=== PATIENT | female | born 1955 | race Caucasian/White ===

== ENCOUNTER 2024-01-27 03:13 | Emergency (ER) | payer MEDICARE, MEDICAID ==
[~2024-01-27] VITALS: Ht 160 cm; Wt 77.5 kg
[2024-01-27] MEDS ORDERED: LEVOTHYROXINE25 MCG (03:20)
[2024-01-27] MEDS ORDERED: AMLODIPINE BESY10 MG PO (03:20)
[2024-01-27] MEDS ORDERED: BUSPIRONE HCL30 MG PO (03:20)
[2024-01-27] MEDS ORDERED: HYDROXYZINE HCL50 MG PO (03:20)
[2024-01-27] MEDS ORDERED: PRAVASTATIN SOD40 MG PO (03:20)
[2024-01-27] MEDS ORDERED: ATENOLOL50 MG (03:20)
[2024-01-27] MEDS ORDERED: FAMOTIDINE40 MG PO (03:21)
[2024-01-27] MEDS ORDERED: OMEPRAZOLE20 MG PO (03:21)
[2024-01-27] MEDS ORDERED: PRAMIPEXOLE D0.25 MG PO (03:21)
[2024-01-27 03:25] LABS: BASOPHILS 1.4 % (0-2); EOSINOPHILS 2.4 % (0-6); HEMATOCRIT 35.2 % (35.0-50.0); HEMOGLOBIN 11.5 g/dL (12.0-18.0); LYMPHOCYTES 32.7 % (24-44); MCH 27.1 (27-36); MCHC 32.8 g/dl (30-36); MCV 82.6 fl (81-99); NEUTROPHILS 53.5 % (39-80); PLATELET COUNT 292 K/uL (140-440); RBC 4.27 M/ul (4.3-5.7); RDW 14.3 (10.5-15.0)
[2024-01-27] MEDS ORDERED: ondansetron HCL 4 MG/2 ML VIAL IV ONE (03:30)
[2024-01-27 03:44] LABS: ALBUMIN 3.4 g/dL (3.4-5.0); ALCOHOL, MEDICAL <3 ng/dL (<3); ALKALINE PHOSPHATASE 75 U/L (46-116); ALT (SGPT) 19 U/L (14-59); ANION GAP 15.9 (7-21); AST (SGOT) 17 U/L (15-37); BILIRUBIN, TOTAL 0.4 ng/dL (0.2-1.0); BUN/CREATININE RATIO 14.55 (6.0-28.6); CARBON DIOXIDE 27 mmol/L (21-32); CHLORIDE 102 mmol/L (98-107); CREATININE, SERUM 1.58 mg/dL (0.55-1.02); GLOMERULAR FILTRATION RATE,EST 35 mL/min (>60); POTASSIUM 3.9 mmol/L (3.5-5.1); PROTEIN, TOTAL 6.8 g/dL (6.4-8.2); UREA NITROGEN 23 mg/dL (7-18)
[2024-01-27 03:49] LABS: CALCIUM 8.7 mg/dL (8.5-10.1)
[2024-01-27] MEDS ORDERED: LACTATED RINGER'S 1,000 ML IV ONE (04:30)
[2024-01-27 04:42] LABS: BILIRUBIN, URINE NEGATIVE (negative); BLOOD/HGB, URINE NEGATIVE (Negative); KETONE, URINE NEGATIVE (Negative); LEUK ESTERASE, URINE NEGATIVE (negative); NITRITE, URINE NEGATIVE (negative)
[2024-01-27 04:55] LABS: AMPHETAMINES, URINE NEGATIVE (NEGATIVE); BARBITURATES, URINE NEGATIVE (NEGATIVE); BENZODIAZEPINE, URINE NEGATIVE (NEGATIVE); BUPRENORPHINE, URINE NEGATIVE (NEGATIVE); CANNABINOID, URINE NEGATIVE (NEGATIVE); COCAINE, URINE NEGATIVE (NEGATIVE); ECSTASY, URINE NEGATIVE (NEGATIVE); FENTANYL, URINE NEGATIVE (NEGATIVE); METHADONE, URINE NEGATIVE (NEGATIVE); OPIATES, URINE NEGATIVE (NEGATIVE); OXYCODONE, URINE NEGATIVE (NEGATIVE); PHENCYCLIDINE, URINE NEGATIVE (NEGATIVE)
[2024-01-27 05:24] VITALS: BP 125/46
--- NOTE | 2024-01-27 21:41 | EKG ---
[facility] [address] [facility] [place] [address] Signed Normal sinus rhythm Left bundle branch block Abnormal ECG No previous ECGs available Confirmed by Wyatt Aguilera MD () on 01/27/2024 9:41:43 PM Electronically Signed By: WYATT AGUILERA MD 01/27/242140 PATIENT NAME: OLIVIER GALVIN Electrocardiogram DATE OF : 53 PHYSICIAN: WYATT AGUILERA MD REPORT #: [id number] REPORT IS CONFIDENTIAL AND NOT TO BE RELEASED WITHOUT AUTHORIZATION
== END 2024-01-27 05:24 | disposition home or self-care (01) ==
LOC: ED 03:13
PROVIDERS: Internal Medicine
DX: F41.9 Anxiety disorder, unspecified (principal); I10 Essential (primary) hypertension; Z79.51 Long term (current) use of inhaled steroids; Z79.899 Other long term (current) drug therapy
CPT/HCPCS: 36415; 71045; 80053; 80307; 81003; 84484; 85025; 93005; 93010; 96374; 99285-25; G0480; J2405

== ENCOUNTER 2024-02-12 21:34 | Emergency (ER) | payer MEDICARE, MEDICAID ==
[~2024-02-12] VITALS: Ht 160 cm; Wt 80.1 kg
[~2024-02-12 21:34] MED LIST: AMLODIPINE BESY10 MG PO; ATENOLOL50 MG; BUSPIRONE HCL30 MG PO; FAMOTIDINE40 MG PO; HYDROXYZINE HCL50 MG PO; LEVOTHYROXINE25 MCG; OMEPRAZOLE20 MG PO; PRAMIPEXOLE D0.25 MG PO; PRAVASTATIN SOD40 MG PO
--- OUTSIDE RECORDS SUMMARY | 2024-02-12 21:39 | XMS ---
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 - 2 Visits in 30 Days CARE PROVIDERS TRAV RUFFIN [facility] Current PHONE: [phone] Vilma has no Care Guidelines for this patient. Shahram VISIT COUNT (12 MO.) 2 [facility] TOTAL 2 NOTE: Visits indicate total known visits. 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
[2024-02-12 21:56] LABS: BILIRUBIN, URINE NEGATIVE (negative); BLOOD/HGB, URINE NEGATIVE (Negative); KETONE, URINE NEGATIVE (Negative); LEUK ESTERASE, URINE NEGATIVE (negative); NITRITE, URINE NEGATIVE (negative); PH, URINE 5.5 (5-7)
[2024-02-12] MEDS ORDERED: FLUVOXAMINE MAL50 MG PO (22:06)
[2024-02-12] MEDS ORDERED: LEVOTHYROXINE25 MCG PO (22:06)
[2024-02-12 22:11] LABS: AMPHETAMINES, URINE NEGATIVE (NEGATIVE); BARBITURATES, URINE NEGATIVE (NEGATIVE); BENZODIAZEPINE, URINE NEGATIVE (NEGATIVE); BUPRENORPHINE, URINE NEGATIVE (NEGATIVE); CANNABINOID, URINE POSITIVE (NEGATIVE); COCAINE, URINE NEGATIVE (NEGATIVE); ECSTASY, URINE NEGATIVE (NEGATIVE); FENTANYL, URINE NEGATIVE (NEGATIVE); METHADONE, URINE NEGATIVE (NEGATIVE); OPIATES, URINE NEGATIVE (NEGATIVE); OXYCODONE, URINE NEGATIVE (NEGATIVE); PHENCYCLIDINE, URINE NEGATIVE (NEGATIVE)
[2024-02-12 22:20] LABS: BASOPHILS 0.6 % (0-2); EOSINOPHILS 1.8 % (0-6); HEMATOCRIT 36.1 % (35.0-50.0); HEMOGLOBIN 11.7 g/dL (12.0-18.0); LYMPHOCYTES 34.7 % (24-44); MCHC 32.4 g/dl (30-36); MCV 83.4 fl (81-99); MONOCYTES 10.6 % (0-12); NEUTROPHILS 52.3 % (39-80); PLATELET COUNT 286 K/uL (140-440); RBC 4.32 M/ul (4.3-5.7); RDW 14.1 (10.5-15.0)
[2024-02-12 22:42] LABS: ACETAMINOPHEN 0 ug/mL (10-30); ALBUMIN 3.2 g/dL (3.4-5.0); ALBUMIN/GLOBULIN RATIO 0.94 (1.1-2.4); ALCOHOL, MEDICAL <3 ng/dL (<3); ALKALINE PHOSPHATASE 76 U/L (46-116); ALT (SGPT) 16 U/L (14-59); ANION GAP 8.6 (7-21); AST (SGOT) 9 U/L (15-37); BILIRUBIN, TOTAL 0.5 ng/dL (0.2-1.0); BUN/CREATININE RATIO 15.03 (6.0-28.6); CALCIUM 8.8 mg/dL (8.5-10.1); CARBON DIOXIDE 25 mmol/L (21-32); CHLORIDE 101 mmol/L (98-107); CREATININE, SERUM 1.53 mg/dL (0.55-1.02); GLOMERULAR FILTRATION RATE,EST 37 mL/min (>60); POTASSIUM 3.6 mmol/L (3.5-5.1); PROTEIN, TOTAL 6.6 g/dL (6.4-8.2); SALICYLATE 1.7 mg/dL (2.8-20.0); UREA NITROGEN 23 mg/dL (7-18)
[2024-02-12 23:54] VITALS: BP 116/51
[2024-02-19] MEDS ORDERED: SEROQUEL25 MG PO (00:33)
== END 2024-02-12 23:55 | disposition home or self-care (01) ==
LOC: ED 21:34
PROVIDERS: Family Medicine
DX: F22 Delusional disorders (principal); I10 Essential (primary) hypertension; Z79.899 Other long term (current) drug therapy; Z79.890 Hormone replacement therapy
CPT/HCPCS: 36415; 80053; 80307; 81003; 84443; 85025; 99285; G0480

== ENCOUNTER 2024-03-25 19:59 | Emergency (ER) | payer MEDICARE, MEDICAID ==
[~2024-03-25] VITALS: Ht 160 cm; Wt 78.0 kg
[~2024-03-25 19:59] MED LIST changes: +FLUVOXAMINE MAL50 MG PO; +LEVOTHYROXINE25 MCG PO; +SEROQUEL25 MG PO
[2024-03-25] MEDS ORDERED: ESTRADIOL42.5 GM VAGINAL (20:08)
[2024-03-25] MEDS ORDERED: RISPERIDONE0.25 MG PO (20:09)
[2024-03-25] MEDS ORDERED: ONDANSETRON 4 MG TAB ODT SL ONE (20:15)
[2024-03-25 20:35] LABS: BASOPHILS 1.3 % (0-2); EOSINOPHILS 1.4 % (0-6); HEMATOCRIT 34.9 % (35.0-50.0); HEMOGLOBIN 11.8 g/dL (12.0-18.0); LYMPHOCYTES 32.8 % (24-44); MCH 27.7 (27-36); MCHC 33.9 g/dl (30-36); MCV 81.7 fl (81-99); MONOCYTES 9.9 % (0-12); NEUTROPHILS 54.6 % (39-80); PLATELET COUNT 280 K/uL (140-440); RBC 4.28 M/ul (4.3-5.7); RDW 14.3 (10.5-15.0)
[2024-03-25 21:01] LABS: ACETAMINOPHEN 0 ug/mL (10-30); ALBUMIN 3.3 g/dL (3.4-5.0); ALBUMIN/GLOBULIN RATIO 0.89 (1.1-2.4); ALCOHOL, MEDICAL <3 ng/dL (<3); ALKALINE PHOSPHATASE 76 U/L (46-116); ALT (SGPT) 15 U/L (14-59); ANION GAP 11.4 (7-21); AST (SGOT) 12 U/L (15-37); BILIRUBIN, TOTAL 0.3 ng/dL (0.2-1.0); BUN/CREATININE RATIO 13.85 (6.0-28.6); CALCIUM 9.4 mg/dL (8.5-10.1); CARBON DIOXIDE 28 mmol/L (21-32); CHLORIDE 103 mmol/L (98-107); CREATININE, SERUM 1.66 mg/dL (0.55-1.02); GLOMERULAR FILTRATION RATE,EST 33 mL/min (>60); POTASSIUM 3.4 mmol/L (3.5-5.1); SALICYLATE 0.7 mg/dL (2.8-20.0); TSH, 3RD GENERATION 2.077 uIU/mL (0.358-3.740); UREA NITROGEN 23 mg/dL (7-18)
[2024-03-25 21:19] LABS: BILIRUBIN, URINE NEGATIVE (negative); BLOOD/HGB, URINE NEGATIVE (Negative); KETONE, URINE NEGATIVE (Negative); LEUK ESTERASE, URINE NEGATIVE (negative); NITRITE, URINE NEGATIVE (negative); PH, URINE 5.5 (5-7)
[2024-03-25 21:34] LABS: AMPHETAMINES, URINE NEGATIVE (NEGATIVE); BARBITURATES, URINE NEGATIVE (NEGATIVE); BENZODIAZEPINE, URINE NEGATIVE (NEGATIVE); BUPRENORPHINE, URINE NEGATIVE (NEGATIVE); CANNABINOID, URINE POSITIVE (NEGATIVE); COCAINE, URINE NEGATIVE (NEGATIVE); ECSTASY, URINE NEGATIVE (NEGATIVE); FENTANYL, URINE NEGATIVE (NEGATIVE); METHADONE, URINE NEGATIVE (NEGATIVE); OPIATES, URINE NEGATIVE (NEGATIVE); OXYCODONE, URINE NEGATIVE (NEGATIVE); PHENCYCLIDINE, URINE NEGATIVE (NEGATIVE)
[2024-03-25 21:40] LABS: ERYTHROCYTE SEDIMENTATION RATE 23
[2024-03-25] MEDS ORDERED: LASIX40 MG PO (23:36)
[2024-03-25] MEDS ORDERED: K-TAB ER20 MEQ PO (23:36)
[2024-03-25] MEDS ORDERED: POTASSIUM CHLORIDE 10 MEQ TABCR PO ONE (23:45)
[2024-03-26 01:42] VITALS: BP 118/55
--- NOTE | 2024-03-26 20:51 | EKG ---
[facility] [address] [facility] [place] [address] Signed Normal sinus rhythm Left axis deviation Left bundle branch block Abnormal ECG When compared with ECG of 27-JAN-2024 03:32, No significant change was found Confirmed by Miguel Ángel Aponte MD ([id number]) on 03/26/2024 8:51:07 PM Electronically Signed By: MIGUEL ÁNGEL APONTE DO 03/26/242050 PATIENT NAME: OLIVIER GALVIN Electrocardiogram DATE OF : 53 PHYSICIAN: MIGUEL ÁNGEL APONTE DO REPORT #: [id number] REPORT IS CONFIDENTIAL AND NOT TO BE RELEASED WITHOUT AUTHORIZATION
== END 2024-03-26 01:42 | disposition home or self-care (01) ==
LOC: ED 19:59
PROVIDERS: Internal Medicine
DX: R60.0 Localized edema (principal); F22 Delusional disorders; I10 Essential (primary) hypertension; Z79.899 Other long term (current) drug therapy
CPT/HCPCS: 36415; 80053; 80307; 81003; 83735; 83880; 84443; 84484; 85025; 85379; 85651; 86140; 93005; 93010; 93970; 99284-25; A9270; G0480

== ENCOUNTER 2024-06-17 17:11 | Emergency (ER) | payer MEDICARE, MEDICAID ==
[~2024-06-17] VITALS: Ht 160 cm; Wt 88.0 kg
[~2024-06-17 17:11] MED LIST changes: +ESTRADIOL42.5 GM VAGINAL; +K-TAB ER20 MEQ PO; +LASIX40 MG PO; +RISPERIDONE0.25 MG PO
[2024-06-17 18:22] LABS: BILIRUBIN, URINE NEGATIVE (negative); BLOOD/HGB, URINE NEGATIVE (Negative); KETONE, URINE TRACE (Negative); LEUK ESTERASE, URINE NEGATIVE (negative); NITRITE, URINE NEGATIVE (negative); PH, URINE 5.5 (5-7)
[2024-06-17 18:36] LABS: BASOPHILS 0.4 % (0-2); EOSINOPHILS 0.6 % (0-6); HEMATOCRIT 34.4 % (35.0-50.0); HEMOGLOBIN 11.5 g/dL (12.0-18.0); LYMPHOCYTES 14.8 % (24-44); MCH 26.9 (27-36); MCHC 33.3 g/dl (30-36); MCV 80.8 fl (81-99); MONOCYTES 7.8 % (0-12); NEUTROPHILS 76.4 % (39-80); PLATELET COUNT 244 K/uL (140-440); RBC 4.25 M/ul (4.3-5.7); RDW 15.1 (10.5-15.0)
[2024-06-17 18:37] LABS: AMPHETAMINES, URINE NEGATIVE (NEGATIVE); BARBITURATES, URINE NEGATIVE (NEGATIVE); BENZODIAZEPINE, URINE NEGATIVE (NEGATIVE); BUPRENORPHINE, URINE NEGATIVE (NEGATIVE); CANNABINOID, URINE NEGATIVE (NEGATIVE); COCAINE, URINE NEGATIVE (NEGATIVE); ECSTASY, URINE NEGATIVE (NEGATIVE); FENTANYL, URINE NEGATIVE (NEGATIVE); METHADONE, URINE NEGATIVE (NEGATIVE); OPIATES, URINE NEGATIVE (NEGATIVE); OXYCODONE, URINE NEGATIVE (NEGATIVE); PHENCYCLIDINE, URINE NEGATIVE (NEGATIVE)
[2024-06-17 18:53] LABS: ACETAMINOPHEN 0 ug/mL (10-30); ALBUMIN 3.3 g/dL (3.4-5.0); ALBUMIN/GLOBULIN RATIO 0.92 (1.1-2.4); ALCOHOL, MEDICAL <3 ng/dL (<3); ALKALINE PHOSPHATASE 65 U/L (46-116); ALT (SGPT) 20 U/L (14-59); ANION GAP 13.2 (7-21); AST (SGOT) 18 U/L (15-37); BILIRUBIN, TOTAL 0.3 ng/dL (0.2-1.0); BUN/CREATININE RATIO 16.04 (6.0-28.6); CALCIUM 8.8 mg/dL (8.5-10.1); CARBON DIOXIDE 27 mmol/L (21-32); CHLORIDE 103 mmol/L (98-107); CREATININE, SERUM 1.62 mg/dL (0.55-1.02); GLOMERULAR FILTRATION RATE,EST 34 mL/min (>60); POTASSIUM 4.2 mmol/L (3.5-5.1); PROTEIN, TOTAL 6.9 g/dL (6.4-8.2); SALICYLATE 0.6 mg/dL (2.8-20.0); TSH, 3RD GENERATION 1.586 uIU/mL (0.358-3.740); UREA NITROGEN 26 mg/dL (7-18)
[2024-06-17 20:22] VITALS: BP 109/57
== END 2024-06-17 20:22 | disposition home or self-care (01) ==
LOC: ED 17:11
PROVIDERS: Emergency Medicine
DX: F32.A Depression, unspecified (principal); I10 Essential (primary) hypertension; E03.9 Hypothyroidism, unspecified; K21.9 Gastro-esophageal reflux disease without esophagitis; Z79.899 Other long term (current) drug therapy
CPT/HCPCS: 36415; 80053; 80307; 81003; 84443; 85025; 99284; G0480

== ENCOUNTER 2024-07-15 20:40 | Emergency (ER) | payer MEDICARE, MEDICAID ==
[~2024-07-15] VITALS: Ht 160 cm; Wt 83.9 kg
[2024-07-15] MEDS ORDERED: SOD PHOSPHATE/SOD BIPHOSPHATE 132 ML BTL PR ONE (21:30)
[2024-07-15] MEDS ORDERED: MAGNESIUM CITRATE 300 ML BTL PO ONE (22:15)
[2024-07-15 22:32] VITALS: BP 105/52
== END 2024-07-15 22:36 | disposition home or self-care (01) ==
LOC: ED 20:40
DX: K59.00 Constipation, unspecified (principal); E03.9 Hypothyroidism, unspecified; I10 Essential (primary) hypertension; K21.9 Gastro-esophageal reflux disease without esophagitis; Z79.899 Other long term (current) drug therapy
CPT/HCPCS: 74018; 99283-25

== ENCOUNTER 2024-09-19 12:36 | Emergency (ER) | payer MEDICARE, MEDICAID ==
[~2024-09-19] VITALS: Ht 160 cm; Wt 82.9 kg
[~2024-09-19 12:36] MED LIST changes: +COLACE100 MG PO
[2024-09-19] MEDS ORDERED: ondansetron HCL 4 MG/2 ML VIAL IV ONE (12:45)
[2024-09-19] MEDS ORDERED: SODIUM CHLORIDE 0.9% 500 ML IV ONE (12:45)
[2024-09-19 13:06] LABS: BILIRUBIN, URINE POSITIVE (negative); BLOOD/HGB, URINE NEGATIVE (Negative); KETONE, URINE TRACE (Negative); LEUK ESTERASE, URINE TRACE (negative); NITRITE, URINE POSITIVE (negative)
[2024-09-19 13:06] LABS: BASOPHILS 0.9 % (0-2); EOSINOPHILS 0.9 % (0-6); HEMATOCRIT 35.5 % (35.0-50.0); HEMOGLOBIN 11.9 g/dL (12.0-18.0); LYMPHOCYTES 23.7 % (24-44); MCH 26.4 (27-36); MCHC 33.6 g/dl (30-36); MCV 78.7 fl (81-99); MONOCYTES 9.7 % (0-12); NEUTROPHILS 64.8 % (39-80); PLATELET COUNT 273 K/uL (140-440); RBC 4.51 M/ul (4.3-5.7)
[2024-09-19 13:14] LABS: BACTERIA, URINE 2+ /hpf (negative); RED BLOOD CELLS, URINE 0-1 /hpf (0-5)
[2024-09-19 13:15] LABS: EPITHELIAL CELLS, URINE SQUAMOUS 3+ /lpf (0-1+); REFLEX CULTURE, URINE No (No)
[2024-09-19 13:32] LABS: ALBUMIN 3.2 g/dL (3.4-5.0); ALBUMIN/GLOBULIN RATIO 0.97 (1.1-2.4); ALCOHOL, MEDICAL <3 ng/dL (<3); ALKALINE PHOSPHATASE 71 U/L (46-116); ALT (SGPT) 23 U/L (14-59); ANION GAP 11.4 (7-21); AST (SGOT) 17 U/L (15-37); BILIRUBIN, TOTAL 0.6 mg/dL (0.2-1.0); BUN/CREATININE RATIO 9.42 (6.0-28.6); CALCIUM 8.5 mg/dL (8.5-10.1); CARBON DIOXIDE 31 mmol/L (21-32); CHLORIDE 102 mmol/L (98-107); CREATININE, SERUM 1.38 mg/dL (0.55-1.02); GLOMERULAR FILTRATION RATE,EST 41 mL/min (>60); POTASSIUM 3.4 mmol/L (3.5-5.1); PROTEIN, TOTAL 6.5 g/dL (6.4-8.2); UREA NITROGEN 13 mg/dL (7-18)
[2024-09-19 13:34] LABS: TSH, 3RD GENERATION 0.6 uIU/mL (0.358-3.740)
[2024-09-19] MEDS ORDERED: CEFTRIAXONE SODIUM 2 GM in SODIUM CHLORIDE 0.9% 100 ML IV ONE (14:15)
[2024-09-19 14:28] LABS: BILIRUBIN, URINE NEGATIVE (negative); BLOOD/HGB, URINE NEGATIVE (Negative); KETONE, URINE NEGATIVE (Negative); LEUK ESTERASE, URINE NEGATIVE (negative); NITRITE, URINE NEGATIVE (negative); PH, URINE 6.5 (5-7)
[2024-09-19] MEDS ORDERED: ONDANSETRON ODT4 MG PO (15:41)
[2024-09-19 15:58] VITALS: BP 168/50
--- NOTE | 2024-09-19 22:29 | EKG ---
[facility] [address] [facility] [place] [address] Signed Normal sinus rhythm Left axis deviation Left bundle branch block Abnormal ECG When compared with ECG of 25-MAR-2024 20:23, No significant change was found Confirmed by Wyatt Aguilera MD () on 09/19/2024 10:29:33 PM Electronically Signed By: WYATT AGUILERA MD 09/19/24 2229 PATIENT NAME: GALVINOLIVIER JOSH Electrocardiogram DATE OF : 53 PHYSICIAN: WYATT AGUILERA MD REPORT #: [id number] REPORT IS CONFIDENTIAL AND NOT TO BE RELEASED WITHOUT AUTHORIZATION
== END 2024-09-19 15:58 | disposition home or self-care (01) ==
LOC: ED 12:36
PROVIDERS: Emergency Medicine
DX: R11.0 Nausea (principal); R35.0 Frequency of micturition; R30.0 Dysuria; E11.9 Type 2 diabetes mellitus without complications; I10 Essential (primary) hypertension; K21.9 Gastro-esophageal reflux disease without esophagitis; Z79.899 Other long term (current) drug therapy
CPT/HCPCS: 36415; 74177; 80053; 81001; 81003; 84439; 84443; 84484; 85025; 93005; 93010; 96375; 99285-25; G0480; J0696; J2405; J7040; Q9967

== ENCOUNTER 2024-12-12 14:33 | Emergency (ER) | payer MEDICARE, OTHER ==
[~2024-12-12] VITALS: Ht 160 cm; Wt 79.5 kg
[~2024-12-12 14:33] MED LIST changes: +ONDANSETRON ODT4 MG PO
[2024-12-12] MEDS ORDERED: HYDROXYZINE HCL25 MG PO (14:55)
[2024-12-12] MEDS ORDERED: QUETIAPINE FUMA25 MG PO (14:55)
[2024-12-12] MEDS ORDERED: METOCLOPRAMIDE H5 MG PO (14:56)
[2024-12-12] MEDS ORDERED: SODIUM CHLORIDE 0.9% 500 ML IV ONE (15:15)
[2024-12-12] MEDS ORDERED: METOCLOPRAMIDE HCL 10 MG/2 ML SDV IV ONE (15:30)
[2024-12-12 15:37] LABS: BASOPHILS 0.2 % (0.1-1.2); EOSINOPHILS 0.9 % (0.7-5.8); LYMPHOCYTES 27.1 % (19.3-51.7); MCH 26.1 PG (25.6-32.2); MCHC 32.3 g/dL (32.2-35.5); MCV 80.7 fL (79.4-94.8); MONOCYTES 9.7 % (4.7-12.5); NEUTROPHILS 61.7 % (34.0-71.1); RBC 4.83 M/uL (3.93-5.22)
[2024-12-12 15:40] LABS: BLOOD/HGB, URINE NEGATIVE (Negative); KETONE, URINE TRACE (Negative); LEUK ESTERASE, URINE TRACE (negative); NITRITE, URINE NEGATIVE (negative)
[2024-12-12 15:48] LABS: BACTERIA, URINE RARE /hpf (negative); CASTS, URINE NONE SEEN \\lpf; CRYSTALS, URINE NONE SEEN (0-1+); EPITHELIAL CELLS, URINE SQUAMOUS 3+ /lpf (0-1+); REFLEX CULTURE, URINE No (No)
[2024-12-12 15:55] LABS: ALT (SGPT) 21.0 U/L (14-59); AST (SGOT) 15.0 U/L (15-37); GLOMERULAR FILTRATION RATE,EST 33.0 mL/min (>60); PROTEIN, TOTAL 6.9 g/dL (6.4-8.2); UREA NITROGEN 18.0 mg/dL (7-18)
[2024-12-12 17:30] VITALS: BP 125/54
== END 2024-12-12 18:20 | disposition home or self-care (01) ==
LOC: ED 14:33
PROVIDERS: Emergency Medicine
DX: R11.0 Nausea (principal); R10.32 Left lower quadrant pain; M19.90 Unspecified osteoarthritis, unspecified site; K21.9 Gastro-esophageal reflux disease without esophagitis; I10 Essential (primary) hypertension
CPT/HCPCS: 36415; 80053; 81001; 83735; 85025; 96374; 96375; 99284-25; J1200; J2405; J2765; J7040

== ENCOUNTER 2024-12-17 11:59 | Emergency (ER) | payer MEDICARE, OTHER ==
[~2024-12-17] VITALS: Ht 160 cm; Wt 79.0 kg
[~2024-12-17 11:59] MED LIST changes: +HYDROXYZINE HCL25 MG PO; +METOCLOPRAMIDE H5 MG PO; +QUETIAPINE FUMA25 MG PO
--- OUTSIDE RECORDS SUMMARY | 2024-12-17 12:05 | XMS ---
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 Shahram VISIT COUNT (12 MO.) [address] [place] [address] TOTAL 9 NOTE: Visits indicate total known visits. ED/UCC VISIT TRACKING (12 MO.) 12/17/2024 11:59 [facility] [place] TYPE: Emergency COMPLAINT: - WEAKNESS 12/12/2024 14:[address] [facility] [place] TYPE: Emergency COMPLAINT: - NAUSEA DIAGNOSES: - Essential (primary) hypertension - Gastro-esophageal reflux disease without esophagitis - Left lower quadrant pain - Nausea - Unspecified osteoarthritis, unspecified site 09/19/2024 12:[address] [facility] [place] TYPE: Emergency COMPLAINT: - WEAKNESS DIAGNOSES: - Dysuria - Essential (primary) hypertension - Frequency of micturition - Gastro-esophageal reflux disease without esophagitis - Nausea - Other intermediate school teacher (current) drug therapy - Type 2 diabetes mellitus without complications 07/15/2024 20:41 [facility] [place] TYPE: Emergency COMPLAINT: - ABD PAIN DIAGNOSES: - Constipation, unspecified - Essential (primary) hypertension - Gastro-esophageal reflux disease without esophagitis - Hypothyroidism, unspecified - Other intermediate school teacher (current) drug therapy 06/17/2024 17:12 [facility] [place] TYPE: Emergency COMPLAINT: - MEDICAL CLEARANCE DIAGNOSES: - Depression, unspecified - Essential (primary) hypertension - Gastro-esophageal reflux disease without esophagitis - Hypothyroidism, unspecified - Other intermediate school teacher (current) drug therapy - Suicidal ideations 03/25/2024 19:59 [facility] [place] TYPE: Emergency COMPLAINT: - WEAKNESS DIAGNOSES: - Delusional disorders - Essential (primary) hypertension - Localized edema - Other nursing home (current) drug therapy 02/18/2024 22:17 [facility] [place] TYPE: Emergency COMPLAINT: - MEDICAL CLEARANCE DIAGNOSES: - Delusional disorders - Essential (primary) hypertension - Hormone replacement therapy - Insomnia, unspecified - Other nursing home (current) drug therapy - Unspecified psychosis not due to a substance or known physiological condition 02/12/2024 21:36 [facility] [place] TYPE: Emergency COMPLAINT: - MEDICAL CLEARANCE DIAGNOSES: - Delusional disorders - Encounter for general psychiatric examination, requested by authority - Essential (primary) hypertension - Hormone replacement therapy - Other nursing home (current) drug therapy 01/27/2024 03:13 [facility] [place] TYPE: Emergency COMPLAINT: - VOMITING DIAGNOSES: - Anxiety disorder, unspecified - Essential (primary) hypertension - [facility] (current) use of inhaled steroids - Nausea - Other intermediate school teacher (current) drug therapy - Shortness of breath - Type 2 diabetes mellitus without complications INPATIENT VISIT TRACKING (12 MO.) No inpatient visits to display in this time frame [id number]
[2024-12-17] MEDS ORDERED: CHLORPROMAZINE10 MG PO (12:11)
[2024-12-17 12:14] LABS: BASOPHILS 0.5 % (0.1-1.2); EOSINOPHILS 1.7 % (0.7-5.8); LYMPHOCYTES 36.0 % (19.3-51.7); MCH 26.3 PG (25.6-32.2); MCHC 32.9 g/dL (32.2-35.5); MCV 79.9 fL (79.4-94.8); MONOCYTES 10.4 % (4.7-12.5); NEUTROPHILS 50.8 % (34.0-71.1); RBC 4.98 M/uL (3.93-5.22)
[2024-12-17 12:30] LABS: BLOOD/HGB, URINE NEGATIVE (Negative); KETONE, URINE NEGATIVE (Negative); LEUK ESTERASE, URINE NEGATIVE (negative); NITRITE, URINE NEGATIVE (negative)
[2024-12-17 12:32] LABS: ALT (SGPT) 19.0 U/L (14-59); AST (SGOT) 13.0 U/L (15-37); GLOMERULAR FILTRATION RATE,EST 44.0 mL/min (>60); PROTEIN, TOTAL 7.1 g/dL (6.4-8.2); UREA NITROGEN 14.0 mg/dL (7-18)
[2024-12-17 13:17] VITALS: BP 127/71
--- NOTE | 2024-12-18 08:01 | EKG ---
[facility] [address] [facility] [place], [place] [address] Signed Normal sinus rhythm Left bundle branch block Minimal voltage criteria for LVH, may be normal variant ( [place] product ) Abnormal ECG When compared with ECG of 19-SEP-2024 12:42, No significant change was found Confirmed by Darien Carlson MD ([id number]) on 12/18/2024 8:01:05 AM Electronically Signed By: DARIEN CARLSON MD 12/18/24 0801 PATIENT NAME: GLENISOLIVIER JOSH Electrocardiogram DATE OF : 53 PHYSICIAN: DARIEN CARLSON MD REPORT #: [id number] REPORT IS CONFIDENTIAL AND NOT TO BE RELEASED WITHOUT AUTHORIZATION
== END 2024-12-17 13:00 | disposition home or self-care (01) ==
LOC: ED 11:59
PROVIDERS: Emergency Medicine
DX: R42 Dizziness and giddiness (principal); F41.9 Anxiety disorder, unspecified; R11.0 Nausea; T43.3X5A Adverse effect of phenothiazine antipsychotics and neuroleptics, initial encounter; I10 Essential (primary) hypertension; Z79.899 Other long term (current) drug therapy
CPT/HCPCS: 36415; 80053; 81003; 83735; 84484; 85025; 93005; 93010; 99285

== ENCOUNTER 2025-03-23 15:06 | Emergency (ER) | payer MEDICARE ==
[~2025-03-23] VITALS: Ht 160 cm; Wt 90.0 kg
[~2025-03-23 15:06] MED LIST changes: +CHLORPROMAZINE10 MG PO
--- OUTSIDE RECORDS SUMMARY | 2025-03-23 15:13 | XMS ---
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 Shahram VISIT COUNT (12 MO.) 8 [facility] TOTAL 8 NOTE: Visits indicate total known visits. ED/UCC VISIT TRACKING (12 MO.) 03/23/2025 15:07 [facility] [place] TYPE: Emergency COMPLAINT: - WEAKNESS 12/19/2024 15:19 [facility] [place] TYPE: Emergency COMPLAINT: - NAUSEA AND DIZZINESS 12/17/2024 11:59 [facility] [place] TYPE: Emergency COMPLAINT: - WEAKNESS DIAGNOSES: - Adverse effect of phenothiazine antipsychotics and neuroleptics, initial encounter - Anxiety disorder, unspecified - Dizziness and giddiness - Essential (primary) hypertension - Nausea - Other care home (current) drug therapy - Weakness 12/12/2024 14:34 [facility] [place] TYPE: Emergency COMPLAINT: - NAUSEA DIAGNOSES: - Essential (primary) hypertension - Gastro-esophageal reflux disease without esophagitis - Left lower quadrant pain - Nausea - Unspecified osteoarthritis, unspecified site 09/19/2024 12:36 [facility] [place] [facility] [place] TYPE: Emergency COMPLAINT: - WEAKNESS DIAGNOSES: - Dysuria - Essential (primary) hypertension - Frequency of micturition - Gastro-esophageal reflux disease without esophagitis - Nausea - Other care home (current) drug therapy - Type 2 diabetes mellitus without complications 07/15/2024 20:[address] [facility] [place] TYPE: Emergency COMPLAINT: - ABD PAIN DIAGNOSES: - Constipation, unspecified - Essential (primary) hypertension - Gastro-esophageal reflux disease without esophagitis - Hypothyroidism, unspecified - Other care home (current) drug therapy 06/17/2024 17:12 [facility] [place] [facility] [place] TYPE: Emergency COMPLAINT: - MEDICAL CLEARANCE DIAGNOSES: - Depression, unspecified - Essential (primary) hypertension - Gastro-esophageal reflux disease without esophagitis - Hypothyroidism, unspecified - Other exterminator (current) drug therapy - Suicidal ideations 03/25/2024 19:[address] [facility] [place] TYPE: Emergency COMPLAINT: - WEAKNESS DIAGNOSES: - Delusional disorders - Essential (primary) hypertension - Localized edema - Other exterminator (current) drug therapy INPATIENT VISIT TRACKING (12 MO.) No inpatient visits to display in this time frame [id number]
[2025-03-23] MEDS ORDERED: IBLOOD GLUCOSE TEST STRIP 1 EA TEST XX ONE (15:30)
[2025-03-23 15:39] LABS: BLOOD/HGB, URINE NEGATIVE (Negative); KETONE, URINE NEGATIVE (Negative); LEUK ESTERASE, URINE SMALL (negative); NITRITE, URINE NEGATIVE (negative)
[2025-03-23 15:43] LABS: EPITHELIAL CELLS, URINE SQUAMOUS 2+ /lpf (0-1+)
[2025-03-23 15:44] LABS: BACTERIA, URINE 2+ /hpf (negative); CASTS, URINE NONE SEEN \\lpf; CRYSTALS, URINE NONE SEEN (0-1+); REFLEX CULTURE, URINE No (No)
[2025-03-23 16:04] LABS: BASOPHILS 0.3 % (0.1-1.2); EOSINOPHILS 0.7 % (0.7-5.8); LYMPHOCYTES 24.3 % (19.3-51.7); MCH 27.0 PG (25.6-32.2); MCHC 33.7 g/dL (32.2-35.5); MCV 80.2 fL (79.4-94.8); MONOCYTES 7.1 % (4.7-12.5); NEUTROPHILS 67.2 % (34.0-71.1); RBC 4.70 M/uL (3.93-5.22)
[2025-03-23 16:26] LABS: ALT (SGPT) 24.0 U/L (14-59); AST (SGOT) 22.0 U/L (15-37); GLOMERULAR FILTRATION RATE,EST 35.0 mL/min (>60); PROTEIN, TOTAL 6.9 g/dL (6.4-8.2); UREA NITROGEN 13.0 mg/dL (7-18)
[2025-03-23] MEDS ORDERED: METOCLOPRAMIDE HCL 10 MG TAB PO ONE (17:45)
[2025-03-23 18:25] VITALS: BP 157/75
--- NOTE | 2025-03-24 19:41 | EKG ---
[facility] [address] [facility] [place] [address] Signed Normal sinus rhythm Prolonged QT Abnormal ECG When compared with ECG of 17-DEC-2024 12:19, QRS duration has decreased T wave amplitude has decreased in Anterior leads Confirmed by Miguel Ángel Aponte DO ([id number]) on 03/24/2025 7:40:50 PM Electronically Signed By: MIGUEL ÁNGEL APONTE DO 03/24/251940 PATIENT NAME: OLIVIER GALVIN Electrocardiogram DATE OF : 53 PHYSICIAN: MIGUEL ÁNGEL APONTE DO REPORT #: [id number] REPORT IS CONFIDENTIAL AND NOT TO BE RELEASED WITHOUT AUTHORIZATION
== END 2025-03-23 18:21 | disposition home or self-care (01) ==
LOC: ED 15:06
PROVIDERS: Emergency Medicine
DX: R53.1 Weakness (principal); I10 Essential (primary) hypertension; K21.9 Gastro-esophageal reflux disease without esophagitis; M19.90 Unspecified osteoarthritis, unspecified site; Z79.899 Other long term (current) drug therapy; Z90.710 Acquired absence of both cervix and uterus
CPT/HCPCS: 36415; 80053; 81001; 83735; 84484; 85025; 85060; 93005; 93010; 99285

== ENCOUNTER 2025-04-01 15:31 | Emergency (ER) | payer MEDICARE ==
[~2025-04-01] VITALS: Ht 160 cm; Wt 76.4 kg
--- OUTSIDE RECORDS SUMMARY | 2025-04-01 15:38 | XMS ---
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 Shahram VISIT COUNT (12 MO.) [address] [place] [address] TOTAL 8 NOTE: Visits indicate total known visits. ED/UCC VISIT TRACKING (12 MO.) 04/01/2025 15:31 [facility] [place] TYPE: Emergency COMPLAINT: - WEAKNESS 03/23/2025 15:07 [facility] [place] TYPE: Emergency COMPLAINT: - WEAKNESS DIAGNOSES: - Acquired absence of both cervix and uterus - Essential (primary) hypertension - Gastro-esophageal reflux disease without esophagitis - Other jail (current) drug therapy - Unspecified osteoarthritis, unspecified site - Weakness 12/19/2024 15:[facility] COMPLAINT: - NAUSEA AND DIZZINESS 12/17/2024 11:59 [facility] [place] [facility] COMPLAINT: - WEAKNESS DIAGNOSES: - Adverse effect of phenothiazine antipsychotics and neuroleptics, initial encounter - Anxiety disorder, unspecified - Dizziness and giddiness - Essential (primary) hypertension - Nausea - Other jail (current) drug therapy - Weakness 12/12/2024 14:34 [facility] [place] TYPE: Emergency COMPLAINT: - NAUSEA DIAGNOSES: - Essential (primary) hypertension - Gastro-esophageal reflux disease without esophagitis - Left lower quadrant pain - Nausea - Unspecified osteoarthritis, unspecified site 09/19/2024 12:36 [facility] [place] [facility] COMPLAINT: - WEAKNESS DIAGNOSES: - Dysuria - Essential (primary) hypertension - Frequency of micturition - Gastro-esophageal reflux disease without esophagitis - Nausea - Other jail (current) drug therapy - Type 2 diabetes mellitus without complications 07/15/2024 20:41 [facility] [place] TYPE: Emergency COMPLAINT: - ABD PAIN DIAGNOSES: - Constipation, unspecified - Essential (primary) hypertension - Gastro-esophageal reflux disease without esophagitis - Hypothyroidism, unspecified - Other long term care administrator (current) drug therapy 06/17/2024 17:12 [facility] [place] TYPE: Emergency COMPLAINT: - MEDICAL CLEARANCE DIAGNOSES: - Depression, unspecified - Essential (primary) hypertension - Gastro-esophageal reflux disease without esophagitis - Hypothyroidism, unspecified - Other jail (current) drug therapy - Suicidal ideations INPATIENT VISIT TRACKING (12 MO.) No inpatient visits to display in this time frame [id number]
[2025-04-01] MEDS ORDERED: OXYBUTYNIN CHLOR5 MG PO (15:46)
[2025-04-01] MEDS ORDERED: LEVOTHYROXINE25 MC1 PO (15:47)
[2025-04-01 16:22] LABS: BASOPHILS 0.3 % (0.1-1.2); EOSINOPHILS 1.4 % (0.7-5.8); LYMPHOCYTES 26.4 % (19.3-51.7); MCH 26.9 PG (25.6-32.2); MCHC 32.5 g/dL (32.2-35.5); MCV 82.9 fL (79.4-94.8); MONOCYTES 10.2 % (4.7-12.5); NEUTROPHILS 61.2 % (34.0-71.1); RBC 4.16 M/uL (3.93-5.22)
[2025-04-01 16:32] LABS: ALT (SGPT) 14.0 U/L (14-59); AST (SGOT) 15.0 U/L (15-37); GLOMERULAR FILTRATION RATE,EST 29.0 mL/min (>60); PROTEIN, TOTAL 5.9 g/dL (6.4-8.2); UREA NITROGEN 13.0 mg/dL (7-18)
[2025-04-01 17:19] LABS: BLOOD/HGB, URINE TRACE-I (Negative); KETONE, URINE NEGATIVE (Negative); LEUK ESTERASE, URINE LARGE (negative); NITRITE, URINE POSITIVE (negative)
[2025-04-01 17:28] LABS: CRYSTALS, URINE NONE SEEN (0-1+); EPITHELIAL CELLS, URINE SQUAMOUS 1+ /lpf (0-1+)
[2025-04-01 17:29] LABS: BACTERIA, URINE 3+ /hpf (negative); CASTS, URINE NONE SEEN \\lpf; REFLEX CULTURE, URINE Yes (No)
[2025-04-01] MEDS ORDERED: CEPHALEXIN500 MG PO (18:55)
[2025-04-01] MEDS ORDERED: CEPHALEXIN MONOHYDRATE 500 MG CAP PO ONE (19:00)
[2025-04-01 19:18] VITALS: BP 154/76
--- NOTE | 2025-04-02 21:34 | EKG ---
[facility] [address] [facility] [place] [address] Signed Normal sinus rhythm Prolonged QT Abnormal ECG When compared with ECG of 23-MAR-2025 15:25, No significant change was found Confirmed by Wyatt Aguilera MD () on 04/02/2025 9:34:13 PM Electronically Signed By: WYATT AGUILERA MD 04/02/25 2134 PATIENT NAME: GALVINOLIVIERSOPHIA MORNEO Electrocardiogram DATE OF : 53 PHYSICIAN: WYATT AGUILERA MD REPORT #: [id number] REPORT IS CONFIDENTIAL AND NOT TO BE RELEASED WITHOUT AUTHORIZATION
== END 2025-04-01 19:26 | disposition home or self-care (01) ==
LOC: ED 15:31
PROVIDERS: Emergency Medicine
DX: N39.0 Urinary tract infection, site not specified (principal); M19.90 Unspecified osteoarthritis, unspecified site; K21.9 Gastro-esophageal reflux disease without esophagitis; Z79.899 Other long term (current) drug therapy
CPT/HCPCS: 36415; 51701; 80053; 81001; 85025; 87088; 93005; 93010; 96374; 99285-25; A9270; J2405

== ENCOUNTER 2025-04-26 16:18 | Emergency (ER) | payer MEDICARE ==
[~2025-04-26] VITALS: Ht 160 cm; Wt 77.1 kg
[~2025-04-26 16:18] MED LIST changes: +CEPHALEXIN500 MG PO; +LEVOTHYROXINE25 MC1 PO; +OXYBUTYNIN CHLOR5 MG PO
--- OUTSIDE RECORDS SUMMARY | 2025-04-26 16:24 | XMS ---
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 Shahram VISIT COUNT (12 MO.) [address] [place] [address] TOTAL 9 NOTE: Visits indicate total known visits. ED/UCC VISIT TRACKING (12 MO.) 04/26/2025 16:[address] [facility] [place] TYPE: Emergency COMPLAINT: - WEAKNESS 04/01/2025 15:31 [facility] [place] TYPE: Emergency COMPLAINT: - WEAKNESS DIAGNOSES: - Gastro-esophageal reflux disease without esophagitis - Other skilled nursing (current) drug therapy - Unspecified osteoarthritis, unspecified site - Urinary tract infection, site not specified - Weakness 03/23/2025 15:07 [facility] [place] TYPE: Emergency COMPLAINT: - WEAKNESS DIAGNOSES: - Acquired absence of both cervix and uterus - Essential (primary) hypertension - Gastro-esophageal reflux disease without esophagitis - Other termite helper (current) drug therapy - Unspecified osteoarthritis, unspecified site - Weakness 12/19/2024 15:[facility] COMPLAINT: - NAUSEA AND DIZZINESS 12/17/2024 11:59 [facility] COMPLAINT: - WEAKNESS DIAGNOSES: - Adverse effect of phenothiazine antipsychotics and neuroleptics, initial encounter - Anxiety disorder, unspecified - Dizziness and giddiness - Essential (primary) hypertension - Nausea - Other termite helper (current) drug therapy - Weakness 12/12/2024 14:34 [facility] [place] TYPE: Emergency COMPLAINT: - NAUSEA DIAGNOSES: - Essential (primary) hypertension - Gastro-esophageal reflux disease without esophagitis - Left lower quadrant pain - Nausea - Unspecified osteoarthritis, unspecified site 09/19/2024 12:[address] [facility] [place] TYPE: Emergency COMPLAINT: - WEAKNESS DIAGNOSES: - Dysuria - Essential (primary) hypertension - Frequency of micturition - Gastro-esophageal reflux disease without esophagitis - Nausea - Other skilled nursing (current) drug therapy - Type 2 diabetes mellitus without complications 07/15/2024 20:[address] [facility] [place] TYPE: Emergency COMPLAINT: - ABD PAIN DIAGNOSES: - Constipation, unspecified - Essential (primary) hypertension - Gastro-esophageal reflux disease without esophagitis - Hypothyroidism, unspecified - Other skilled nursing (current) drug therapy 06/17/2024 17:[address] [facility] [place] TYPE: Emergency COMPLAINT: - MEDICAL CLEARANCE DIAGNOSES: - Depression, unspecified - Essential (primary) hypertension - Gastro-esophageal reflux disease without esophagitis - Hypothyroidism, unspecified - Other termite helper (current) drug therapy - Suicidal ideations INPATIENT VISIT TRACKING (12 MO.) No inpatient visits to display in this time frame [id number]
[2025-04-26 16:44] LABS: BASOPHILS 0.3 % (0.1-1.2); EOSINOPHILS 0.9 % (0.7-5.8); LYMPHOCYTES 19.7 % (19.3-51.7); MCH 26.7 PG (25.6-32.2); MCHC 32.9 g/dL (32.2-35.5); MCV 81.1 fL (79.4-94.8); MONOCYTES 7.5 % (4.7-12.5); NEUTROPHILS 71.1 % (34.0-71.1); RBC 4.54 M/uL (3.93-5.22)
[2025-04-26] MEDS ORDERED: LACTATED RINGER'S 1,000 ML IV PRN (16:45)
[2025-04-26] MEDS ORDERED: SODIUM CHLORIDE 0.9% 1,000 ML IV PRN (16:45)
[2025-04-26 16:53] LABS: ALT (SGPT) 17.0 U/L (14-59); AST (SGOT) 18.0 U/L (15-37); GLOMERULAR FILTRATION RATE,EST 31.0 mL/min (>60); PROTEIN, TOTAL 6.2 g/dL (6.4-8.2); UREA NITROGEN 17.0 mg/dL (7-18)
[2025-04-26 18:06] LABS: BLOOD/HGB, URINE NEGATIVE (Negative); KETONE, URINE NEGATIVE (Negative); LEUK ESTERASE, URINE SMALL (negative); NITRITE, URINE NEGATIVE (negative)
[2025-04-26 18:13] LABS: BACTERIA, URINE RARE /hpf (negative); CASTS, URINE NONE SEEN \\lpf; CRYSTALS, URINE NONE SEEN (0-1+); EPITHELIAL CELLS, URINE SQUAMOUS 2+ /lpf (0-1+); REFLEX CULTURE, URINE No (No)
[2025-04-26] MEDS ORDERED: METOCLOPRAMIDE HCL 10 MG/2 ML SDV IV ONE (18:30)
[2025-04-26 18:42] VITALS: BP 164/88
--- NOTE | 2025-04-27 13:13 | EKG ---
[facility] [address] [facility] [place] [address] Signed Normal sinus rhythm Prolonged QT Abnormal ECG When compared with ECG of 01-APR-2025 15:41, No significant change was found Confirmed by Miguel Ángel Aponte DO ([id number]) on 04/27/2025 1:12:48 PM Electronically Signed By: MIGUEL ÁNGEL APONTE DO 04/27/25 1313 PATIENT NAME: OLIVIER GALVIN Electrocardiogram DATE OF : 53 PHYSICIAN: MIGUEL ÁNGEL APONTE DO REPORT #: [id number] REPORT IS CONFIDENTIAL AND NOT TO BE RELEASED WITHOUT AUTHORIZATION
== END 2025-04-26 18:57 | disposition home or self-care (01) ==
LOC: ED 16:18
PROVIDERS: Emergency Medicine
DX: I95.1 Orthostatic hypotension (principal); I10 Essential (primary) hypertension; K21.9 Gastro-esophageal reflux disease without esophagitis; M19.90 Unspecified osteoarthritis, unspecified site; Z90.710 Acquired absence of both cervix and uterus; Z79.899 Other long term (current) drug therapy
CPT/HCPCS: 36415; 80053; 81001; 85025; 93005; 93010; 96361; 96374; 96375; 99284-25; J1200; J2765; J7121

== ENCOUNTER 2025-05-08 13:19 | Emergency (ER) | payer MEDICARE ==
[~2025-05-08] VITALS: Ht 160 cm; Wt 71.2 kg
[~2025-05-08 13:19] MED LIST changes: -ATENOLOL50 MG; +ATENOLOL50 MG PO
--- OUTSIDE RECORDS SUMMARY | 2025-05-08 13:25 | XMS ---
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 Current PHONE: [phone] Ashley Acosta Physician Sterilizer Operator Current TALI PHONE: [phone] Vilma has no Care Guidelines for this patient. Shahram VISIT COUNT (12 MO.) [address] [place] [address] TOTAL 10 NOTE: Visits indicate total known visits. ED/UCC VISIT TRACKING (12 MO.) 05/08/2025 13:19 [facility] [place] TYPE: Emergency COMPLAINT: - ALTERED LOC 04/26/2025 16:18 [facility] [place] TYPE: Emergency COMPLAINT: - WEAKNESS DIAGNOSES: - Acquired absence of both cervix and uterus - Dizziness and giddiness - Essential (primary) hypertension - Gastro-esophageal reflux disease without esophagitis - Orthostatic hypotension - Other group home (current) drug therapy - Unspecified osteoarthritis, unspecified site 04/01/2025 15:31 [facility] [place] TYPE: Emergency COMPLAINT: - WEAKNESS DIAGNOSES: - Gastro-esophageal reflux disease without esophagitis - Other joint terminal attack controller (current) drug therapy - Unspecified osteoarthritis, unspecified site - Urinary tract infection, site not specified - Weakness 03/23/2025 15:07 [facility] [place] TYPE: Emergency COMPLAINT: - WEAKNESS DIAGNOSES: - Acquired absence of both cervix and uterus - Essential (primary) hypertension - Gastro-esophageal reflux disease without esophagitis - Other group home (current) drug therapy - Unspecified osteoarthritis, unspecified site - Weakness 12/19/2024 15:19 [facility] [place] TYPE: Emergency COMPLAINT: - NAUSEA AND DIZZINESS 12/17/2024 11:59 [facility] [place] TYPE: Emergency COMPLAINT: - WEAKNESS DIAGNOSES: - Adverse effect of phenothiazine antipsychotics and neuroleptics, initial encounter - Anxiety disorder, unspecified - Dizziness and giddiness - Essential (primary) hypertension - Nausea - Other joint terminal attack controller (current) drug therapy - Weakness 12/12/2024 14:34 [facility] [place] TYPE: Emergency COMPLAINT: - NAUSEA DIAGNOSES: - Essential (primary) hypertension - Gastro-esophageal reflux disease without esophagitis - Left lower quadrant pain - Nausea - Unspecified osteoarthritis, unspecified site 09/19/2024 12:36 [facility] [place] TYPE: Emergency COMPLAINT: - WEAKNESS DIAGNOSES: - Dysuria - Essential (primary) hypertension - Frequency of micturition - Gastro-esophageal reflux disease without esophagitis - Nausea - Other group home (current) drug therapy - Type 2 diabetes mellitus without complications 07/15/2024 20:41 [facility] [place] TYPE: Emergency COMPLAINT: - ABD PAIN DIAGNOSES: - Constipation, unspecified - Essential (primary) hypertension - Gastro-esophageal reflux disease without esophagitis - Hypothyroidism, unspecified - Other joint terminal attack controller (current) drug therapy 06/17/2024 17:12 [facility] [place] TYPE: Emergency COMPLAINT: - MEDICAL CLEARANCE DIAGNOSES: - Depression, unspecified - Essential (primary) hypertension - Gastro-esophageal reflux disease without esophagitis - Hypothyroidism, unspecified - Other joint terminal attack controller (current) drug therapy - Suicidal ideations INPATIENT VISIT TRACKING (12 MO.) No inpatient visits to display in this time frame [id number]
[2025-05-08 13:50] LABS: BASOPHILS 0.4 % (0.1-1.2); EOSINOPHILS 1.0 % (0.7-5.8); LYMPHOCYTES 31.5 % (19.3-51.7); MCH 27.1 PG (25.6-32.2); MCHC 33.2 g/dL (32.2-35.5); MCV 81.7 fL (79.4-94.8); MONOCYTES 6.8 % (4.7-12.5); NEUTROPHILS 59.8 % (34.0-71.1); RBC 4.69 M/uL (3.93-5.22)
[2025-05-08 14:02] LABS: ALT (SGPT) 28.0 U/L (14-59); AST (SGOT) 26.0 U/L (15-37); GLOMERULAR FILTRATION RATE,EST 31.0 mL/min (>60); PROTEIN, TOTAL 6.6 g/dL (6.4-8.2); UREA NITROGEN 18.0 mg/dL (7-18)
[2025-05-08] MEDS ORDERED: SODIUM CHLORIDE 0.9% 1,000 ML IV PRN (15:00)
[2025-05-08 15:07] LABS: BLOOD/HGB, URINE NEGATIVE (Negative); KETONE, URINE NEGATIVE (Negative); LEUK ESTERASE, URINE SMALL (negative); NITRITE, URINE NEGATIVE (negative)
[2025-05-08 15:16] LABS: CRYSTALS, URINE NONE SEEN (0-1+); EPITHELIAL CELLS, URINE NONE SEEN /lpf (0-1+)
[2025-05-08 15:17] LABS: BACTERIA, URINE 3+ /hpf (negative); CASTS, URINE NONE SEEN \\lpf; REFLEX CULTURE, URINE Yes (No)
[2025-05-08] MEDS ORDERED: CEPHALEXIN500 M1 PO (15:47)
[2025-05-08] MEDS ORDERED: CEPHALEXIN MONOHYDRATE 500 MG CAP PO ONE (16:00)
[2025-05-08 16:12] VITALS: BP 123/94
--- NOTE | 2025-05-10 13:54 | EKG ---
[facility] [address] [facility] [place] [address] Signed Normal sinus rhythm Voltage criteria for left ventricular hypertrophy Left bundle branch block Abnormal ECG When compared with ECG of 26-APR-2025 17:36, Left bundle branch block is now present Confirmed by Miguel Ángel Aponte DO ([id number]) on 05/10/2025 1:54:48 PM Electronically Signed By: MIGUEL ÁNGEL APONTE DO 05/10/25 1354 PATIENT NAME: OLIVIER GALVIN Electrocardiogram DATE OF : 53 PHYSICIAN: MIGUEL ÁNGEL APONTE DO REPORT #: [id number] REPORT IS CONFIDENTIAL AND NOT TO BE RELEASED WITHOUT AUTHORIZATION
== END 2025-05-08 16:10 | disposition home or self-care (01) ==
LOC: ED 13:19
PROVIDERS: Emergency Medicine
DX: N39.0 Urinary tract infection, site not specified (principal); K21.9 Gastro-esophageal reflux disease without esophagitis; E03.9 Hypothyroidism, unspecified; I10 Essential (primary) hypertension; Z79.899 Other long term (current) drug therapy
CPT/HCPCS: 36415; 51701; 80053; 81001; 83735; 84484; 85025; 87088; 93005; 93010; 99284; A9270; J7030

== ENCOUNTER 2025-05-11 12:08 | Inpatient (IN) | payer MEDICARE ==
[~2025-05-11] VITALS: Ht 160 cm; Wt 72.7 kg
--- NOTE | ~2025-05-11 | EKG ---
[facility] [address] [facility] [place], [place] [address] Draft EKG completed, results pending confirmation PATIENT NAME: OLIVIER GALVIN Electrocardiogram DATE OF : 53 PHYSICIAN: PRELIMINARY REPORT #: [id number] REPORT IS CONFIDENTIAL AND NOT TO BE RELEASED WITHOUT AUTHORIZATION
[~2025-05-11 12:08] MED LIST changes: +CEPHALEXIN500 M1 PO
--- OUTSIDE RECORDS SUMMARY | 2025-05-11 12:15 | XMS ---
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 E.D. VISIT COUNT (12 MO.) 11 REN So TOTAL 11 NOTE: Visits indicate total known visits. ED/UCC VISIT TRACKING (12 MO.) 05/11/2025 12:08 [facility] [place] TYPE: Emergency COMPLAINT: - WEAKNESS 05/08/2025 13:19 [facility] [place] TYPE: Emergency COMPLAINT: - WEAKNESS DIAGNOSES: - Essential (primary) hypertension - Gastro-esophageal reflux disease without esophagitis - Hypothyroidism, unspecified - Other exterminator helper termite (current) drug therapy - Urinary tract infection, site not specified - Weakness 04/26/2025 16:[address] [facility] [place] TYPE: Emergency COMPLAINT: - WEAKNESS DIAGNOSES: - Acquired absence of both cervix and uterus - Dizziness and giddiness - Essential (primary) hypertension - Gastro-esophageal reflux disease without esophagitis - Orthostatic hypotension - Other exterminator helper termite (current) drug therapy - Unspecified osteoarthritis, unspecified site 04/01/2025 15:[address] [facility] [place] TYPE: Emergency COMPLAINT: - WEAKNESS DIAGNOSES: - Gastro-esophageal reflux disease without esophagitis - Other exterminator helper termite (current) drug therapy - Unspecified osteoarthritis, unspecified site - Urinary tract infection, site not specified - Weakness 03/23/2025 15:[address] [facility] [place] TYPE: Emergency COMPLAINT: - WEAKNESS DIAGNOSES: - Acquired absence of both cervix and uterus - Essential (primary) hypertension - Gastro-esophageal reflux disease without esophagitis - Other detention (current) drug therapy - Unspecified osteoarthritis, unspecified site - Weakness 12/19/2024 15:19 [facility] [place] TYPE: Emergency COMPLAINT: - NAUSEA AND DIZZINESS 12/17/2024 11:59 [facility] [place] TYPE: Emergency COMPLAINT: - WEAKNESS DIAGNOSES: - Adverse effect of phenothiazine antipsychotics and neuroleptics, initial encounter - Anxiety disorder, unspecified - Dizziness and giddiness - Essential (primary) hypertension - Nausea - Other exterminator helper termite (current) drug therapy - Weakness 12/12/2024 14:34 [facility] [place] TYPE: Emergency COMPLAINT: - NAUSEA DIAGNOSES: - Essential (primary) hypertension - Gastro-esophageal reflux disease without esophagitis - Left lower quadrant pain - Nausea - Unspecified osteoarthritis, unspecified site 09/19/2024 12:36 [facility] [place] TYPE: Emergency COMPLAINT: - WEAKNESS DIAGNOSES: - Dysuria - Essential (primary) hypertension - Frequency of micturition - Gastro-esophageal reflux disease without esophagitis - Nausea - Other exterminator helper termite (current) drug therapy - Type 2 diabetes mellitus without complications 07/15/2024 20:41 [facility] [place] TYPE: Emergency COMPLAINT: - ABD PAIN DIAGNOSES: - Constipation, unspecified - Essential (primary) hypertension - Gastro-esophageal reflux disease without esophagitis - Hypothyroidism, unspecified - Other exterminator helper termite (current) drug therapy 06/17/2024 17:[address] [facility] [place] TYPE: Emergency COMPLAINT: - MEDICAL CLEARANCE DIAGNOSES: - Depression, unspecified - Essential (primary) hypertension - Gastro-esophageal reflux disease without esophagitis - Hypothyroidism, unspecified - Other exterminator helper termite (current) drug therapy - Suicidal ideations INPATIENT VISIT TRACKING (12 MO.) No inpatient visits to display in this time frame [email or web address]
[2025-05-11] MEDS ORDERED: SODIUM CHLORIDE 0.9% 1,000 ML IV ONE (13:15)
[2025-05-11 13:24] LABS: BASOPHILS 0.3 % (0.1-1.2); EOSINOPHILS 0.8 % (0.7-5.8); LYMPHOCYTES 17.1 % (19.3-51.7); MCH 26.7 PG (25.6-32.2); MCHC 33.0 g/dL (32.2-35.5); MCV 81.1 fL (79.4-94.8); MONOCYTES 6.5 % (4.7-12.5); NEUTROPHILS 74.8 % (34.0-71.1); RBC 4.38 M/uL (3.93-5.22)
[2025-05-11 13:50] LABS: ALT (SGPT) 13.0 U/L (14-59); AST (SGOT) 18.0 U/L (15-37); GLOMERULAR FILTRATION RATE,EST 34.0 mL/min (>60); PROTEIN, TOTAL 6.4 g/dL (6.4-8.2); UREA NITROGEN 19.0 mg/dL (7-18)
[2025-05-11 13:56] LABS: BLOOD/HGB, URINE NEGATIVE (Negative); KETONE, URINE NEGATIVE (Negative); LEUK ESTERASE, URINE SMALL (negative); NITRITE, URINE POSITIVE (negative)
[2025-05-11 14:03] LABS: BACTERIA, URINE 3+ /hpf (negative); CASTS, URINE NONE SEEN \\lpf; CRYSTALS, URINE NONE SEEN (0-1+); EPITHELIAL CELLS, URINE SQUAMOUS 2+ /lpf (0-1+)
[2025-05-11 14:04] LABS: REFLEX CULTURE, URINE No (No)
[2025-05-11] MEDS ORDERED: SODIUM CHLORIDE 0.9% 1,000 ML IV SCH (16:15)
[2025-05-11] MEDS ORDERED: ACETAMINOPHEN 325 MG TAB PO PRN (16:15)
[2025-05-11 17:00] LABS: TSH, 3RD GENERATION 1.476 uIU/mL (0.358-3.740)
[2025-05-11 17:20] VITALS: BP 153/75
--- NOTE | 2025-05-11 17:22 | NUR ---
PT IN FROM ED VIA STRETCHER, REPORT RECEIVED FROM BRISA CROWLEY. INITIAL VITAL SIGNS TAKEN, ADMISSION DONE. PT USED BEDSIDE COMMODE 1PA WITH FWW TOLERATED WELL.
--- NOTE | 2025-05-11 18:55 | NUR ---
NOTIFIED OF PATIENT POSITIVE ORTHOSTATIC VITAL SIGNS. WITH NO FURTHER ORDERS AT THIS TIME. CALL ENDED.
--- NOTE | 2025-05-11 19:16 | NUR ---
PT LAYING IN BED, HAD DINNER TOLERATED WELL. ORTHOSTATIC DONE AND WAS POSITIVE, PT REPORTED GETTING DIZZY AFTER GETTING UP. REPORTED HAVING URINARY URGENCY AND FREQUENCY, GOT UP TO BEDSIDE COMMODE TWICE WITHIN 1HOUR. DENIES PAIN. DUE MEDS GIVEN. DENIES NEEDS. EMPHASIZED IMPORTANCE OF CALLING FOR ASSISTANCE ESPECIALLY WHEN USING THE BEDSIDE COMMODE. DENIES FURTHER NEEDS. EDUCATED ON THE USE OF CALL LIGHT.
[2025-05-11] MEDS ORDERED: LABETALOL HCL 20 MG/4 ML VIAL IV PRN (19:30)
[2025-05-11] MEDS ORDERED: LORazepam 2 MG/ML VIAL IV PRN (19:30)
[2025-05-11] MEDS ORDERED: CAPSAICIN 0.1% 56.6 GM TUBE TOP PRN (19:30)
[2025-05-11] MEDS ORDERED: ZOLPIDEM TARTRATE 5 MG TAB PO PRN (19:30)
--- NOTE | 2025-05-11 19:30 | EKG ---
[facility] [address] [facility] [place] [address] Signed Normal sinus rhythm Prolonged QT Abnormal ECG When compared with ECG of 08-MAY-2025 13:39, Left bundle branch block is no longer present Confirmed by Miguel Ángel Aponte DO ([id number]) on 05/11/2025 7:30:15 PM Electronically Signed By: MIGUEL ÁNGEL APONTE DO 05/11/251929 PATIENT NAME: OLIVIER GALVIN Electrocardiogram DATE OF : 53 PHYSICIAN: MIGUEL ÁNGEL APONTE DO REPORT #: [id number] REPORT IS CONFIDENTIAL AND NOT TO BE RELEASED WITHOUT AUTHORIZATION
--- NOTE | 2025-05-11 19:35 | NUR ---
REPORT RECEIVED FROM OFFGOING RN. PT RESTING IN BED WITH EYES CLOSED. CALL LIGHT IN REACH.
[2025-05-11 20:33] VITALS: BP 173/68
[2025-05-11] MEDS ORDERED: MELATONIN 3 MG TAB PO PRN (21:00)
[2025-05-11] MEDS ORDERED: HEParin SOD (PORCINE) 5,000 UNIT/ML SDV SUB-Q SCH (21:00)
--- NOTE | 2025-05-11 21:00 | NUR ---
PT ASSESSMENT COMPLETE. PT RESTING IN BED EYES CLOSED. WAKES EASILY TO VOICE. PT DENIES PAIN. STATES THAT NAUSEA IS WELL CONTROLLED AT THIS TIME. PT IS ALERT AND ORIENTED. IV FLUSHED WITH 10 ML NS. PT UP TO COMMODE AND BACK TO BED AT END OF ASSESSMENT. PT REPORTS DIZZINESS AND LIGHTHEADEDNESS UPON SITTING UP. UP WITH 1 PA AND FWW. ICE WATER REFILLED. POC FOR THIS SHIFT DISCUSSED. PT DENIES QUESTIONS OR CONCERNS AT THIS TIME. CALL LIGHT AND CELL PHONE LEFT IN PT REACH.
--- NOTE | 2025-05-11 21:58 | NUR ---
PT ROUNDING. PT RESTING IN BED WITH EYES OPEN. DENIES NEEDS. CALL LIGHT IN REACH.
[2025-05-11 22:07] VITALS: BP 173/68
--- NOTE | 2025-05-11 22:15 | NUR ---
PT UTILIZES CALL LIGHT, REQUESTS TO USE THE BSC. UP TO BSC AND BACK TO BED WITH 1 PA. TOLERATED WELL. PT DENIES DIZZINESS UPON SITTING UP AND STANDING. DENIES FURTHER NEEDS. CALL LIGHT IN REACH.
[2025-05-12] VITALS (9 sets, daily range): BP systolic 144–165; BP diastolic 65–89
--- NOTE | 2025-05-12 00:34 | NUR ---
PT ROUNDING. PT RESTING IN BED WITH EYES CLOSED. RESPIRATIONS EVEN AND UNLABORED. PT DOES NOT WAKE WHILE ROTARY MACHINE OPERATOR AT DOORWAY. CALL LIGHT IN REACH.
--- NOTE | 2025-05-12 02:12 | NUR ---
PT ROUNDING. PT RESTING IN BED WITH EYES CLOSED. RESPIRATIONS EVEN AND UNLABORED. PT DOES NOT WAKE WHILE CORPORATE DIRECTOR AT DOORWAY. CALL LIGHT IN REACH.
--- NOTE | 2025-05-12 02:42 | NUR ---
PT ASSESSMENT COMPLETE. PT HEARD YELLING FROM RN STATION. AUTHORIZATION MANAGER TO ROOM. PT STATES SHE COULD NOT FIND THE CALL LIGHT. PT ASSISTED TO BSC AND BACK TO BED WITH 1 PA. PT REPORTS SLIGHT DIZZINESS UPON SITTING UP. PT DENIES PAIN, NAUSEA, OR SOB. PT REMAINS ALERT AND ORIENTED. ASSESSMENT UNCHANGED FROM PREVIOUS. PT DENIES FURTHER NEEDS AT THIS TIME. VS OBTAINED, WNL. CALL LIGHT IN PT'S REACH.
--- NOTE | 2025-05-12 03:20 | NUR ---
PT UTILIZES CALL LIGHT, STATES THAT SHE HAS TO USE THE BSC. PT UP AND BACK TO BED WITH 1 PA, STATES THAT DIZZINESS IS WELL CONTROLLED. PT DENIES FURTHER NEEDS AT THIS TIME. CALL LIGHT IN REACH.
--- NOTE | 2025-05-12 04:55 | NUR ---
PT UTILIZES CALL LIGHT, REQUESTS TO USE THE BSC. PT UP AND BACK TO BED WITH 1 PA, PT REPORTS DIZZINESS WITH STANDING. ORTHOSTATIC VS OBTAINED. PT DENIES FURTHER NEEDS. CALL LIGHT IN REACH.
[2025-05-12 05:34] LABS: GLOMERULAR FILTRATION RATE,EST 42.0 mL/min (>60); UREA NITROGEN 17.0 mg/dL (7-18)
--- NOTE | 2025-05-12 07:21 | NUR ---
REPORT RECEIVED FROM BRISA DOBBS. PT LAYING IN BED, RESPIRATIONS EVEN AND UNLABORED. IV FLUID INFUSING WELL. NO APPARENT NEEDS NOTED AT THIS TIME. CALL LIGHT IN REACH.
[2025-05-12] MEDS ORDERED: IBLOOD GLUCOSE TEST STRIP 1 EA TEST VI SCH (08:00)
[2025-05-12] MEDS ORDERED: INSULIN LISPRO 100 UNIT/ML ML SUB-Q SCH (08:00)
[2025-05-12] MEDS ORDERED: GLUCAGON,HUMAN RECOMBINANT 1 MG/ML VIAL SUB-Q PRN (08:00)
[2025-05-12] MEDS ORDERED: DEXTROSE 5% 1,000 ML IV PRN (08:00)
[2025-05-12] MEDS ORDERED: IBLOOD GLUCOSE TEST STRIP 1 EA TEST XX PRN (08:00)
[2025-05-12] MEDS ORDERED: DEXTROSE 50% 50 ML SYR IV PRN ×2 (08:00)
--- NOTE | 2025-05-12 08:51 | NUR ---
PT CALLED TO USE THE COMMODE BUT HAVE ALREADY GONE IN HER PULL UP. VITAL SIGNS TAKEN AND RECORDED. INTAKE OUTPUT RECORDED. DUE MEDICATIONS GIVEN. DENIES NEEDS. CALL LIGHT IN REACH.
[2025-05-12] MEDS ORDERED: POTASSIUM CHLORIDE 40 MEQ,LIDOCAINE HCL 1% 40 MG in DEXTROSE 5% 250 ML IV ONE (09:00)
[2025-05-12] MEDS ORDERED: AMLODIPINE BESYLATE 5 MG TAB PO SCH (09:00)
[2025-05-12] MEDS ORDERED: POTASSIUM CHLORIDE 10 MEQ TABCR PO ONE (09:00)
--- NOTE | 2025-05-12 09:45 | NUR ---
PT LAYING IN BED FINISHING BREAKFAST. IV INFUSING WELL, DUE MEDICATION GIVEN. DENIES FURTHER NEEDS. CALL LIGHT IN REACH.
--- NOTE | 2025-05-12 10:25 | NUR ---
PT LAYING IN BED, FULL ASSESSMENT DONE. PT GOT UP TO COMMODE AND HAD BM. PT MOVED WELL WITH FWW 1PA. DENIES FURTHER NEEDS. CALL LIGHT IN REACH.
--- NOTE | 2025-05-12 11:24 | NUR ---
PT LAYING IN BED, RESPIRATIONS EVEN AND UNLABORED. IV INFUSING WELL. BLOOD SUGAR CHECKED. DENIES FURTHER NEEDS. CALL LIGHT IN REACH.
--- NOTE | 2025-05-12 11:52 | NUR ---
PT IN BED RESTING, RESPIRATIONS EVEN AND UNLABORED. IV INFUSING WELL. SET UP LUNCH FOR PT. DENIES FURTHER NEEDS. CALL LIGHT IN REACH.
[2025-05-12] MEDS ORDERED: PHARMACY RENAL DOSE ADJUSTMENT 1 DOSE MISC PO SCH (12:00)
--- NOTE | 2025-05-12 12:42 | NUR ---
PT CALLED THIS RN TO HER ROOM AND PT WAS ON THE PHONE WITH HER SON. SON JUST WANTED TO MAKE SURE THAT MD IS AWARE THAT THE PT NEEDS HELP UPON D/C BECAUSE SHE IS UNABLE TO CARE FOR HERSELF. TOLD THE SON THAT IT'S BEEN COMMUNICATED DURING REPORT AND WILL CONTINUE TO PASS IT ALONG. PT GOT UP TO BSC WITH FWW 1PA. DENIES FURTHER NEEDS.
--- NOTE | 2025-05-12 13:43 | NUR ---
PT IS LAYING IN BED, IV FLUID INFUSING WELL. VITAL SIGNS TAKEN AND RECORDED. INTAKE AND OUTPUT RECORDED. PT HAS BEEN HAVING URINARY FREQUENCY AND INCONTINENCE, PERICARE PROVIDED, PUREWICK PLACED. DENIES FURTHER NEEDS. CALL LIGHT WITHIN REACH.
--- NOTE | 2025-05-12 14:28 | NUR ---
PT CALLED AND EXPRESSED WORRY ABOUT GETTING NAUSEATED, THIS RN TOLD PT THAT THE DOCTOR SOMETHING FOR HER IF SHE GETS NAUSEOUS. THIS RN ASKED IF SHE IS FEELING NAUSEOUS AT THE MOMENT, PT DENIES. DENIES FURTHER NEEDS AT THIS TIME.
--- NOTE | 2025-05-12 15:30 | NUR ---
PT LAYING IN BED. IV FLUID INFUSING WELL. RT IN THE ROOM FOR EKG. NO APPARENT NEEDS AT THIS TIME. CALL LIGHT IN REACH.
--- NOTE | 2025-05-12 16:03 | NUR ---
EKG RESULT READS: NSR, LEFT BUNDLE BRANCH BLOCK, ABNORMAL ECG. CALLED HOSPITALIST, GOT VOICE MAIL. LEFT A MESSAGE.
--- NOTE | 2025-05-12 16:44 | NUR ---
PT CALLED AND STATED SHE IS STARTING TO FEEL NAUSEOUS. ZOSTRIX HP GIVEN ORDERED.
--- NOTE | 2025-05-12 17:18 | NUR ---
PT LAYING IN BED, IV INFUSING WELL. VITAL SIGNS TAKEN AND RECORDED. INTAKE AND OUTPUT RECORDED. SET UP DINNER TRAY FOR PT. DENIES FURTHER NEEDS. CALL LIGHT IN REACH.
--- NOTE | 2025-05-12 18:05 | NUR ---
PT LAYING IN BED EATING HER DINNER. IV INFUSING WELL. DENIES NEEDS AT THE M0MENT. CALL LIGHT IN REACH.
--- NOTE | 2025-05-12 19:15 | NUR ---
REPORT RECEIVED FROM OFFGOING RN. PT RESTING IN BED WITH FAMILY VISITING AT BEDSIDE. NEEDS DENIED. CALL LIGHT IN REACH.
--- NOTE | 2025-05-12 20:00 | NUR ---
PT UTILIZES CALL LIGHT, REQUESTS ASSISTANCE WITH BED MOBILITY TO GET COMFORTABLE. PT ASSISTED. POC FOR THIS SHIFT DISCUSSED. PT STATES UNDERSTANDING. DENIES QUESTIONS, CONCERNS, OR NEEDS. CALL LIGHT IN REACH.
--- NOTE | 2025-05-12 21:41 | NUR ---
PT ASSESSMENT COMPLETE. PT RESTING IN BED. STATES THAT SHE HAS NOT BEEN ABLE TO GET TO SLEEP YET. PT REQUESTS PRN SLEEP AID. PROVIDED. PT DENIES PAIN, NAUSEA, OR SOB. AGREES THAT PRN FOR NAUSEA WAS VERY HELPFUL. PT AFFECT IS FLAT, PT A&OX4. PUREWICK CHANGED. IV FLUSHED WITH 10 ML NS, WNL. IVF RUNNING ORDERED. VS OBTAINED, WNL. ICE WATER REFILLED. PT ASSISTED TO ROLL OVER IN THE BED. PT DENIES FURTHER NEEDS. CALLLIGHT IN REACH.
--- NOTE | 2025-05-12 22:38 | NUR ---
PT ROUNDING. PT RESTING IN BED, LYING ON R SIDE. EYES CLOSED, RESPIRATIONS EVEN AND UNLABORED. PT DOES NOT WAKE WHILE BOWL SANDER AT DOORWAY. CALL LIGHT IN REACH.
[2025-05-13] VITALS (10 sets, daily range): BP systolic 143–149; BP diastolic 62–79
--- NOTE | 2025-05-13 00:47 | NUR ---
PT ROUNDING. PT RESTING IN BED WITH EYES CLOSED. RESPIRATIONS EVEN AND UNLABORED. PT DOES NOT WAKE WHILE HIM TECH AT DOORWAY. CALL LIGHT IN REACH.
--- NOTE | 2025-05-13 01:05 | NUR ---
PT UTILIZES CALL LIGHT, REPORTS THAT HER BED IS WET. ADMINISTRATIVE AND PROGRAM SPECIALIST AND OTHER RN TO ROOM. PT CLEANED. CHUX, ATTENDS, AND PAD CHANGED. PUREWICK REPOSITIONED. PT ROLLS IN BED WITH MINIMAL ASSISTANCE. WOULD LIKE TO CONTINUE TO LAY ON R SIDE. DENIES FURTHER NEEDS AT THIS TIME. CALL LIGHT IN REACH.
--- NOTE | 2025-05-13 04:14 | NUR ---
PT ROUNDING. PT RESTING IN BED WITH EYES CLOSED. RESPIRATIONS EVEN AND UNLABORED. PT DOES NOT WAKE WHILE LINER CHECKER AT BEDSIDE. CALL LIGHT IN REACH.
[2025-05-13 05:44] LABS: GLOMERULAR FILTRATION RATE,EST 61.0 mL/min (>60); UREA NITROGEN 11.0 mg/dL (7-18)
--- NOTE | 2025-05-13 05:54 | NUR ---
PT ASSESSMENT COMPLETE. PT RESTING IN BED WITH EYES CLOSED. WAKES EASILY TO VOICE. PT IS DROWSY UPON WAKING. ANSWERS QUESTIONS BUT FALLS TO SLEEP QUICKLY. PT ORIENTED X 2. UNSURE OF ACCURATE DATE, AND SITUATION REGARDING HOSPITALIZATION. PT UP TO SIDE OF BED FOR ORTHOSTATIC VS. STATES THAT SHE IS DIZZY AND SHAKEY DURING STANDING. HR INCREASED TO 160 DURING ORTHOSTATIC VS. TELE #[address], SR AND HR IN 90'S AT REST. PUREWICK CHANGED AT THIS TIME. PT HAVING DILUTE YELLOW URINE OUTPUT. IV SL. PT DENIES FURTHER NEEDS AT THIS TIME. CALL LIGHT IN REACH.
--- NOTE | 2025-05-13 07:10 | NUR ---
RECIEVED REPORT FROM BRISA DOBBS. PT IS RESTING IN BED WITH EYES CLOSED, RR EVEN AND UNLABORED. CALL LIGHT AND PERSONAL BELONGINGS ARE WITHIN REACH.
--- NOTE | 2025-05-13 08:15 | NUR ---
PT SITTING UP IN BED WITH BREAKFAST TRAY. CALL LIGHT AND PERSONAL BELONGINGS ARE WITHIN REACH. PT DENIES ANY NEEDS AT THIS TIME.
--- NOTE | 2025-05-13 08:18 | NUR ---
PT TELE MONITOR READING HR IN 130'S. DR ANDREW MANLEY MD GAVE ORDERS FOR A CBC STAT, 12 LEAD EKG AND TO REDUCE PT'S DAILY AMLODIPINE DOSE IN HALF, LOWERING IT FROM 5 MG TO 2.5 MG DAILY. NO FURTHER ORDERS AT THIS TIME. PT IS SITTING UP IN BED EATING BREAKFAST.
[2025-05-13 08:27] LABS: BASOPHILS 0.8 % (0.1-1.2); EOSINOPHILS 1.8 % (0.7-5.8); LYMPHOCYTES 34.5 % (19.3-51.7); MCH 27.3 PG (25.6-32.2); MCHC 32.6 g/dL (32.2-35.5); MCV 83.8 fL (79.4-94.8); MONOCYTES 10.1 % (4.7-12.5); NEUTROPHILS 52.1 % (34.0-71.1); RBC 4.21 M/uL (3.93-5.22)
[2025-05-13] MEDS ORDERED: AMLODIPINE BESYLATE 2.5 MG TAB PO SCH (09:00)
[2025-05-13] MEDS ORDERED: MAGNESIUM SULFATE 2 GM/50 ML BAG IV ONE (09:00)
[2025-05-13] MEDS ORDERED: POTASSIUM CHLORIDE 10 MEQ TABCR PO ONE (09:00)
--- NOTE | 2025-05-13 10:13 | NUR ---
PATIENT HR SPIKED TO 145 WHILE STANDING UP WITH PHYSICAL THERAPY AT THIS TIME. PT AND PATIENT REPORTED GETTING BACK TO BED NOW. PATIENT HR IS NOW BACK IN THE 120'S.
--- NOTE | 2025-05-13 11:08 | NUR ---
PT RESTING IN BED WITH EYES CLOSED. RR EVEN AND UNLABORED. CALL LIGHT AND PERSONAL BELONGINGS ARE WITHIN REACH.
--- NOTE | 2025-05-13 11:55 | NUR ---
MED REC COMPLETE
[2025-05-13] MEDS ORDERED: METOPROLOL TARTRATE 25 MG TAB PO ONE (12:30)
--- NOTE | 2025-05-13 13:15 | NUR ---
PT SITTING UP IN BED, VISITING WITH FAMILY IN ROOM. CALL LIGHT AND PERSONAL BELONGINGS ARE WITHIN REACH.
--- NOTE | 2025-05-13 13:23 | NUR ---
VITAL SIGNS AND INTAKE AND OUTPUT VALUES TAKEN AND DOCUMENTED IN THE CHART. IV PUMP CLEARED OF INTAKE FLUIDS. PUREWICK CHANGED AND ULISES CARE COMPLETE. LUNCH TRAY REMOVED PER PATIENT REQUEST. PATIENT STATED NO FURTHER NEEDS AT THIS TIME. CALL LIGHT AND PERSONAL BELONGINGS ARE WITHIN REACH.
--- NOTE | 2025-05-13 14:26 | NUR ---
PATIENT IS LYING IN BED WITH HOB ELEVATED. PATIENT WITH EYES CLOSED AND RESPIRATIONS ARE EVEN AND UNLABORED. CALL LIGHT AND PERSONAL BELONGINGS ARE WITHIN REACH.
--- NOTE | 2025-05-13 16:27 | NUR ---
UPDATE GIVEN TO BAUDILIO DOUGLAS AT THIS TIME. ALL QUESTIONS AND CONCERNS ADDRESSED. CALL ENDED.
[2025-05-13] MEDS ORDERED: METOCLOPRAMIDE HCL 5 MG TAB PO SCH (17:45)
--- NOTE | 2025-05-13 21:08 | NUR ---
PTS PURWICK CHANGED, BRIEF CHANGED, SKIN CLEANSED. PT REPOSITIONED IN BED, REPORTS NO OTHER NEEDS AT THIS TIME, CALL LIGHT WITHIN REACH.
--- NOTE | 2025-05-13 21:36 | NUR ---
Laying on Right side, on room air, no c/o SOB with exertion, tele#6 in place, ST rhythm. denies CP. Repositions slef in bed, Lungs clear bilat. abd soft, LARY, scds in place, SL patent, Ambien given on requests for insomnia, alarms inplace, declined seizure pads and fall pads. Flat affect, cooperative,no c/o Auditory or visual hallucinations at this time
--- NOTE | 2025-05-13 21:43 | NUR ---
PT REQUESTS SOCKS OFF, COMPLETED. PT REQUESTS NO OTHER NEEDS AT THIS TIME, CALL LIGHT WITHIN REACH, LIGHTS OFF.
--- NOTE | 2025-05-13 23:06 | NUR ---
C/O ANXIETY, MEDICATED WITH ATIVAN 1MG IV. PT IN BED, ROOM AIR, SCDS IN PLACE, TELEIN PLACE
[2025-05-14] VITALS (13 sets, daily range): BP systolic 124–150; BP diastolic 53–95
--- NOTE | 2025-05-14 02:05 | NUR ---
GOES BACK TO SLEEP RIGHT AWAYS, EYES CLOSED, NO S/SX DISTRESS, NO C/O ANXIETY. REPOSITIONS SELF IN BED, INDEPENDENT IN ROOM. TELE#[address]
[2025-05-14 05:50] LABS: BASOPHILS 0.7 % (0.1-1.2); EOSINOPHILS 2.6 % (0.7-5.8); LYMPHOCYTES 32.8 % (19.3-51.7); MCH 27.5 PG (25.6-32.2); MCHC 33.3 g/dL (32.2-35.5); MCV 82.4 fL (79.4-94.8); MONOCYTES 11.1 % (4.7-12.5); NEUTROPHILS 52.1 % (34.0-71.1); RBC 4.04 M/uL (3.93-5.22)
--- NOTE | 2025-05-14 05:56 | NUR ---
rESTING, EYES CLOSED, NO S/SX DISTRESS, COOPERATIVE WITH VITALS, SECOND ASSESSMENT AND LABS. DENIES C/O PAIN WHEN ASKE, PUREWICK CHANGED. DRAINING QS YELLOW URINE. TELE#6 SR, iRREGULAR DENIES CP
[2025-05-14 06:08] LABS: GLOMERULAR FILTRATION RATE,EST 61.0 mL/min (>60); UREA NITROGEN 14.0 mg/dL (7-18)
--- NOTE | 2025-05-14 07:34 | NUR ---
MORNING REPORT RECEIVED FROM BRISA MORAELS. PT LAYING IN BED WITH EYES CLOSED CHEST RISE EQUAL BILAT. PT APPEARS COMFORTABLE AT THIS TIME AND HAS CALL LIGHT IN REACH AT THIS TIME, PT HAD NO ACUTE EVENTS OVER NIGHT.
[2025-05-14] MEDS ORDERED: METOPROLOL TARTRATE 25 MG TAB PO SCH (09:00)
--- NOTE | 2025-05-14 10:12 | NUR ---
PT SITTIGN UP IN BED, PT HAS NO CURRENT NEEDS AT THIS TIME AND HAS CALL LIGHT IN REACH.
--- NOTE | 2025-05-14 11:00 | NUR ---
PT SITTING UP IN BED AT THIS TIME, PT IS CURRENTLY WORKING WITH PHYSICAL THERAPY. CALL LIGHT IN REACH IF NEEDED.
--- NOTE | 2025-05-14 11:46 | NUR ---
UR CLINICAL REVIEW: 2 MN FOR [facility]-PER HEALTH AND SAFETY TECHNICIAN MEETS INPT FOR [facility] WITH NEED FOR PT/OT, MEDICATION MANAGEMENT AND TELE. MEDICARE INPT 05/11/25 @ 1611 ORDER MATCHES REG NO AUTH REQUIRED PER MEDICARE GUIDELINES DISCHARGE TO HOME WHEN STABLE 05/15/25 DC REVIEW
--- NOTE | 2025-05-14 12:22 | NUR ---
PT REPOSITIONED IN BED, PT TOLERATED WELL AND HAS NO CURRENT NEEDS AT THIS TIME. PT IS CURRENTLY EATING LUNCH AT THIS TIME.
--- NOTE | 2025-05-14 13:30 | NUR ---
PT SITTING UP IN BED, PT HAS EYES CLOSED CHEST RISE EQUAL BILAT, PT HAS CALL LIGHT IN REACH IF NEEDED.
--- NOTE | 2025-05-14 13:57 | NUR ---
INTO SEE PATIENT. PATIENT FAMILY AT BEDSIDE. PATIENT PERSONAL INFORMATION REVIEWED. PATIENT LIVES ALONE. NO STEPS INTO APARTMENT. PATIENT HAS NO DME. DOES NOT DRIVE. PATIENT FAMILY HAS STARTED THE VIDEO TAPE EDITOR MEDICAID PROCESS. FINANCIAL INTERVIEW IS ON 05/17. PATIENT AGREEABLE TO SNF.
--- NOTE | 2025-05-14 14:30 | NUR ---
PT SITTING UP IN BED, PT STATES " THEY FEEL BETTER THEN YESTERDAY, AND HAD NO NAUSEA OR PAIN". PT HAS CALL LIGHT IN REACH IF NEEDED.
--- NOTE | 2025-05-14 15:29 | NUR ---
PT SITTING UP IN BED WATCHING TV, PT STATES "THEY DO NOT NEED ANTHING". PT HAS CALL LIGHT IN REACH.
--- NOTE | 2025-05-14 15:36 | NUR ---
CHART FAXED TO [facility], [facility]
--- NOTE | 2025-05-14 16:29 | NUR ---
PT LAYING IN BED WITH EYES CLOSED CHEST RISE EQUAL BILAT AND CALL LIGHT IN REACH IF NEEDED.
--- NOTE | 2025-05-14 17:57 | NUR ---
PT SITTING UP IN BED, PT DENIES NEEDS AND HAS CALL LIGHT IN REACH OF NEEDED.
--- NOTE | 2025-05-14 18:14 | NUR ---
PT SITTING UP ON EDGE OF BED AND DENIES ANY NEEDS, PT HAS CALL LIGHT IN REACH AND FRESH WATER.
--- NOTE | 2025-05-14 18:15 | NUR ---
Provided BB and shampoo cap for Pt. Provided oral care and fresh washcloth. Changed gown and linens PRN. Changed brief, applied body lotion, offered deodorant and chapstick. No other needs expressed by Pt. Call light left in reach. Bed locked and lowered.
--- NOTE | 2025-05-14 19:40 | NUR ---
RECIEVED REPORT FROM BRISA DHILLON. PT LAYING IN BED REQUESTING LIGHTS OFF, COMPLETED. WHITEBOARD UPDATED. PT REPORTS NO NEEDS AT THIS TIME, CALL LIGHT WITHIN REACH, BED AT LOWEST POSITION.
--- NOTE | 2025-05-14 21:05 | NUR ---
VS TAKEN, BS TAKEN, MEDS AND INSULIN GIVEN PER ORDER. PT VERY SLEEPY DURING ASSESSMENT, REPORTS NO PAIN OR NEEDS AT THIS TIME. I&OS CHARTED, LIGHTS OFF, AND CALL LIGHT WITHIN REACH.
--- NOTE | 2025-05-14 23:54 | NUR ---
PT LAYING IN BED, EYES CLOSED, UNLABORED BREATHING. IV FLUIDS INFUSING PER ORDER, CALL LIGHT WITHIN REACH.
[2025-05-15] VITALS (12 sets, daily range): BP systolic 129–143; BP diastolic 52–83
--- NOTE | 2025-05-15 01:20 | NUR ---
CONCRETE SCULPTOR AT BEDSIDE TAKING VITALS, NO NEEDS AT THIS TIME. CALL LIGHT WITHIN REACH.
--- NOTE | 2025-05-15 02:33 | NUR ---
PUREWICK CHANGED, ULISES CARE PERFORMED. PATIENT IS RESTING IN BED AWAKE AT THIS TIME. CALL LIGHT WITHIN REACH. BED ALARM ON FOR PATIENT SAFETY.
--- NOTE | 2025-05-15 03:40 | NUR ---
PT LAYING IN BED, EYES CLOSED, UNLABORED BREATHING. NO NEEDS AT THIS TIME, IV FLUIDS INFUSING PER ORDER. CALL LIGHT WITHIN REACH.
--- NOTE | 2025-05-15 05:43 | NUR ---
VS TAKEN, I&OS CHARTED, PURWICK CANISTER EMPTIED. NEW WATER GIVEN. PT REPORTS NO OTHER NEEDS AT THIS TIME, CALL LIGHT WITHIN REACH.
--- NOTE | 2025-05-15 07:20 | NUR ---
REPORT RECEIVED FROM TEDDY LEDEZMA. PATIENT IN BED, CALL LIGHT AND PERSONAL BELONGINGS IN REACH.
--- NOTE | 2025-05-15 08:12 | NUR ---
PATIENT IN BED. ASSISTED PATIENT TO RESTROOM AND BACK TO BED. ASSESMENT COMPLETE, SCHEDULED MEDICATIONS ADMINISTERED. CALL LIGHT AND PERSONAL BELONGINGS IN REACH.
--- NOTE | 2025-05-15 08:20 | NUR ---
PATIENT IN BED, BREAKFAST AT BEDSIDE. SCHEDULED MEDICATIONS ADMINISTERED. CALL LIGHT AND PERSONAL BELONGINGS IN REACH.
[2025-05-15] MEDS ORDERED: QUETIAPINE FUMARATE 25 MG TAB PO SCH (09:00)
[2025-05-15] MEDS ORDERED: METOPROLOL TARTRATE 25 MG TAB PO SCH (09:00)
--- NOTE | 2025-05-15 09:10 | NUR ---
PATIENT TRANSFERRING TO CHAIR WITH JIRA DEVELOPER AT BEDSIDE
--- NOTE | 2025-05-15 09:12 | NUR ---
DR. MORALES NOTIFIED OF SUSTAINED HR IN 120'S. NO NEW ORDERS RECEIVED.
--- NOTE | 2025-05-15 10:11 | NUR ---
ASSISTED PATIENT FROM CHAIR TO BED. CALL LIGHT AND PERSONAL BELONGINGS IN REACH. PATIENT DENIES CONCERNS AT THIS TIME.
--- NOTE | 2025-05-15 10:33 | NUR ---
INTO SEE PATIENT. WAITING FOR SNF ACCEPTANCE.
--- NOTE | 2025-05-15 11:24 | NUR ---
PATIENT IN CHAIR, CALL LIGHT AND PERSONAL BELONGINGS IN REACH.
--- NOTE | 2025-05-15 11:43 | NUR ---
CALLED MD MORALES AND REVIEWED PATIENT'S URINE CULTURE RESULTS. VERBAL ORDER RECEIVED TO REPEAT URINE CULTURE, NOTES HE SUSPECTS CONTAMINATION. NO FURTHER ORDERS AT THIS TIME.
--- NOTE | 2025-05-15 11:55 | NUR ---
PATIENT IN CHAIR, LUNCH AT BEDSIDE. SCHEDULED MEDICATIONS ADMINISTERED. CALL LIGHT AND PERSONAL BELONGINGS IN REACH OF PATIENT.
--- NOTE | 2025-05-15 12:17 | NUR ---
PATIENT IN CHAIR, LUNCH AT BEDSIDE. ASSESMENT COMPLETE. CALL LIGHT AND PERSONAL BELONGINGS IN REACH.
--- NOTE | 2025-05-15 12:49 | NUR ---
PATIENT IN BED, CALL LIGHT AND PERSONAL BELONGINGS IN REACH.
[2025-05-15] MEDS ORDERED: FLUVOXAMINE MALEATE 50 MG TAB PO SCH (12:50)
--- NOTE | 2025-05-15 13:30 | NUR ---
PATIENT IN BED. SCHEDULED MEDICATION ADMINISTERED. CALL LIGHT AND PERSONAL BELONGINGS IN REACH. PATIENT DENIES CONCERNS. HOME MEDICATION PLACED IN LOCK BOX IN ROOM.
--- NOTE | 2025-05-15 14:28 | NUR ---
PATIENT HAD A COMPLETE BEDBATH. PATIENTS VITAL SIGNS AND I&OS WERE DONE. CALL LIGHT IS WITHIN REACH AND NO FURTHER NEEDS AT THIS TIME.
--- NOTE | 2025-05-15 16:15 | NUR ---
PATIENT IN CHAIR. PRN MEDICATION ADMINISTERED PER EMAR AND PER PATIENT REQUEST. PATIENT SUPPLIED WITH COLORING SUPPLIES AT HER REQUEST. PATIENT DENIES FURTHER CONCERNS AT THIS TIME. CALL LIGHT AND PERSONAL BELONGINGS IN REACH OF PATIENT.
--- NOTE | 2025-05-15 18:18 | NUR ---
PATIENT IN CHAIR, STRATEGY INTERN AT BEDSIDE. CALL LIGHT IN REACH.
--- NOTE | 2025-05-15 18:47 | NUR ---
PRN MEDICATION ADMINISTERED PER PATIENT REQUEST AND PER EMAR ORDER. PATIENT IN BED. CALL LIGHT AND PERSONAL BELONGINGS IN REACH OF PATIENT. PATIENT DENIES FURTHER CONCERNS AT THIS TIME.
--- NOTE | 2025-05-15 19:25 | NUR ---
RECIEVED REPORT FROM BRISA PALOMARES. PT LAYING IN BED, REQUESTING TO BE REPOSITIONED IN BED, COMPLETED. NO OTHER NEEDS AT THIS TIME, CALL LIGHT WITHIN REACH.
--- NOTE | 2025-05-15 20:30 | NUR ---
PTS VS TAKEN, I&OS CHARTED. PT REPORTS FEELING OF INDIGESTION, NIO MAALOX PLACED AND GIVEN. PT ALSO GIVEN CRACKERS PER REQUEST AND DRESH ICE WATER. ORDERED MEDS GIVEN, PT REPOSITIONED IN BED, REPORTS NO OTHER NEEDS AT THIS TIME, CALL LIGHT WITHIN REACH, BED AT LOWEST POSITION, LIGHTS OFF.
[2025-05-15] MEDS ORDERED: MAGNESIUM HYDROXIDE/AL HYDROX 30 ML CUP PO PRN (20:45)
--- NOTE | 2025-05-15 22:50 | NUR ---
PT LAYING IN BED, EYES CLOSED, UNLABORED BREATHING. NO NEEDS AT THIS TIME, CALL LIGHT WITHIN REACH, LIGHTS OFF, SCDS IN PLACE.
[2025-05-16] VITALS (9 sets, daily range): BP systolic 113–151; BP diastolic 59–78
--- NOTE | 2025-05-16 00:48 | NUR ---
PT LAYING IN BED, EYES CLOSED, UNLABORED BREATHING. NO NEEDS AT THIS TIME, SCDS IN PLACE, CALL LIGHT WITHIN REACH.
--- NOTE | 2025-05-16 01:54 | NUR ---
THIS RN AND DIRECTOR CAREER SERVICES AT BEDSIDE TAKING PTS VS, I&OS CHARTED. PT TAKEN TO THE BATHROOM WITH FWW AND SBA, HAIR COMBED, BED READJUSTED. PT BACK TO BED AT THIS TIME, SCDS ON, PT REPOSITIONED. NO OTHER NEEDS AT THIS TIME, CALL LIGHT WITHIN REACH.
--- NOTE | 2025-05-16 02:44 | NUR ---
PT LAYING IN BED, REPORTS NO NEEDS AT THIS TIME. PT REFUSES SCDS, CALL LIGHT WITHIN REACH. BED AT LOWEST POSITION.
--- NOTE | 2025-05-16 07:05 | NUR ---
RECEIVED VERBAL REPORT FROM BRISA GABRIEL. PATIENT LAYING ON RIGHT SIDE WITH EYES CLOSED, RESPIRATIONS EVEN AND UNLABORED. NO NEEDS IDENTIFIED AT THIS TIME. CALL LIGHT IN REACH.
--- NOTE | 2025-05-16 08:28 | NUR ---
NOtified by admissions at [facility] they are concerned about pts schizophrenia and will require at [facility] II. I copied the PAS[facility] II instructions and faxed showing this pt has not had any admissions for or disruptions in her life in the last two years for her schizophrenia. I faxed the meds pt is taking for mental health.
--- NOTE | 2025-05-16 08:50 | NUR ---
In and spoke with Annabella. She wants to dc to [place] when discharged. updated I am waiting for them to review the chart. I will update her when I get further information.
--- NOTE | 2025-05-16 08:58 | NUR ---
NOtified by [facility] they can accept this pt. I called and scheduled the van for 12:15. Dr. Aldridge, charge nurse, and pt notified.
[2025-05-16] MEDS ORDERED: METOPROLOL TART25 MG PO (09:57)
[2025-05-16] MEDS ORDERED: METOCLOPRAMIDE H5 MG PO (09:58)
--- NOTE | 2025-05-16 10:30 | NUR ---
ASSESSMENT COMPLETED AND DOCUMENTED. PATIENT SITTING IN RECLINER AWAKE AND ALERT COLORING. PATIENT STATED SHE WAS FEELING ANXIOUS ABOUT GOING TO A NEW FACILITY D/C IS TODAY. PATIENT DENIES PAIN OR NEEDS. CALL LIGHT IN REACH.
--- NOTE | 2025-05-16 11:00 | NUR ---
Faxed orders, DC summary, emar, and PASSR to [facility].
--- NOTE | 2025-05-16 12:00 | NUR ---
VERBAL TELEPHONE REPORT GIVEN TO BRISA CALHOUN AT [facility]. ALL QUESTIONS ANSWERED.
--- NOTE | 2025-05-17 22:08 | EKG ---
[facility] [address] [facility] [place] [address] Signed Normal sinus rhythm Left bundle branch block Abnormal ECG When compared with ECG of 11-MAY-2025 13:22, Left bundle branch block is now present Confirmed by Wyatt Aguilera MD () on 05/17/2025 10:08:03 PM Electronically Signed By: WYATT AGUILERA MD 05/17/25 [id number] PATIENT NAME: GALVINOLIVIER JOSH Electrocardiogram DATE OF : 53 PHYSICIAN: WYATT AGUILERA MD REPORT #: [id number] REPORT IS CONFIDENTIAL AND NOT TO BE RELEASED WITHOUT AUTHORIZATION
== END 2025-05-16 11:50 | disposition home or self-care (01) | DRG 683 ==
LOC: ED 12:08 → MS 16:11
PROVIDERS: Emergency Medicine; Internal Medicine; ADMIT Student in an Organized Health Care Education/Training Program; ATTEND Student in an Organized Health Care Education/Training Program
DX: N17.9 Acute kidney failure, unspecified (principal); F20.0 Paranoid schizophrenia; N39.0 Urinary tract infection, site not specified; I95.1 Orthostatic hypotension; M19.90 Unspecified osteoarthritis, unspecified site; K21.9 Gastro-esophageal reflux disease without esophagitis; Z66 Do not resuscitate; E03.9 Hypothyroidism, unspecified; I10 Essential (primary) hypertension; Z96.652 Presence of left artificial knee joint; E11.9 Type 2 diabetes mellitus without complications; Z96.641 Presence of right artificial hip joint; F32.9 Major depressive disorder, single episode, unspecified; F41.1 Generalized anxiety disorder; T46.1X5A Adverse effect of calcium-channel blockers, initial encounter; R33.9 Retention of urine, unspecified; R11.0 Nausea; D32.0 Benign neoplasm of cerebral meninges; Z90.710 Acquired absence of both cervix and uterus; Z90.49 Acquired absence of other specified parts of digestive tract; Z98.890 Other specified postprocedural states; Z88.2 Allergy status to sulfonamides; Z79.899 Other long term (current) drug therapy; Z79.84 Long term (current) use of oral hypoglycemic drugs
CPT/HCPCS: 36415; 51798; 70450; 80048; 80053; 81001; 83036; 83735; 84439; 84443; 85025; 87077; 87088; 87186; 93005; 93010; 97163; 97165; 97530; A9270; J0696; J1644; J1815; J2060; J3475; J3480; J3490; J7030; J7060; Q0177